=== PATIENT | female | born 1995 | race Caucasian/White ===

== ENCOUNTER 2024-01-29 03:47 | Outpatient (CLI) | payer BC, SELFPAY ==
[2024-01-29 16:54] LABS: Panorama Kit Sent via Fed Ex
[2024-01-29 17:04] LABS: Abs Immature Grans 0.04 10^3/uL (0.0-0.06); Absolute Basophil Count 0.03 10^3/uL (0.0-0.2); Absolute Eosinophil Count 0.06 10^3/uL (0.0-0.7); Absolute Lymphocyte Count 2.09 10^3/uL (1.2-3.4); Absolute Monocyte Count 0.54 10^3/uL (0.1-0.8); Absolute Neutrophil Count 7.55 10^3/uL (1.2-6.7); Basophils % 0.3 %; Eosinophils % 0.6 %; HCT 36.8 % (36.0-46.0); HGB 12.6 g/dL (11.2-15.7); Immature Grans % 0.4 %; Lymphocytes % 20.3 %; MCH 29.2 pg (27.0-33.0); MCHC 34.2 % (32.0-36.0); MCV 85 fL (80-95); MPV 9.8 fL (8.0-11.0); Monocytes % 5.2 %; Neutrophils % 73.2 %; Platelet Count 227 10^3/uL (130-400); RBC 4.32 10^6/uL (3.93-5.22); RDW 12.4 % (11.7-14.6); RDW-SD 38.6 fL; WBC 10.31 10^3/uL (4.4-10.8)
[2024-01-30 23:48] LABS: Hepatitis B Surface Ag Negative (Negative)
[2024-01-31 00:11] LABS: HIV-1/2 Ag & Ab Screen Negative (Negative)
[2024-01-31 00:19] LABS: Hepatitis C Ab w Rflx HCV PCR Negative (Negative)
[2024-01-31 10:15] LABS: Varicella IgG Antibody Negative (See Note)
[2024-01-31 10:23] LABS: Rubella IgG Ab (UVM) Negative (See Note)
[2024-02-01 15:43] LABS: Syphilis IgG w/Reflex Nonreactive (Nonreactive)
[2024-02-04 15:51] LABS: Specimen WB Whole Blood
[2024-02-11 16:04] LABS: Result Summary NEGATIVE; Specimen WB Whole Blood
== END 2024-01-29 03:48 | disposition home or self-care (01) ==
LOC: LBO 03:47
PROVIDERS: Visit Provider Advanced Practice Midwife
DX: Z34.91 Encounter for supervision of normal pregnancy, unspecified, first trimester (principal)
CPT/HCPCS: 36415; 81220; 81222; 81329; 86787; 86803; 86850; 86900; 86901; 87340; 87389; 85025; 86762; 86780

== ENCOUNTER 2024-01-29 16:24 | Outpatient (REF) | payer BC, SELFPAY ==
[2024-01-31 14:01] LABS: Chlamydia Result Negative (Negative); GC Result Negative (Negative)
== END 2024-01-29 16:25 | disposition home or self-care (01) ==
LOC: LBN 16:24
PROVIDERS: Visit Provider Advanced Practice Midwife
DX: Z34.91 Encounter for supervision of normal pregnancy, unspecified, first trimester (principal); Z3A.11 11 weeks gestation of pregnancy; Z11.3 Encounter for screening for infections with a predominantly sexual mode of transmission
CPT/HCPCS: 87491; 87591; 87086

== ENCOUNTER 2024-05-26 03:29 | Outpatient (CLI) | payer BC, SELFPAY ==
[2024-05-26 11:27] LABS: HCT 37.1 % (36.0-46.0); HGB 12.8 g/dL (11.2-15.7); MCH 30.1 pg (27.0-33.0); MCHC 34.5 % (32.0-36.0); MCV 87 fL (80-95); MPV 9.8 fL (8.0-11.0); Platelet Count 203 10^3/uL (130-400); RBC 4.25 10^6/uL (3.93-5.22); RDW 12.6 % (11.7-14.6); RDW-SD 40.2 fL; WBC 11.17 10^3/uL (4.4-10.8)
[2024-05-26 11:37] LABS: Glucose,1 Hr (Glucola) 101 mg/dL (80-140)
== END 2024-05-26 03:30 | disposition home or self-care (01) ==
LOC: LBO 03:29
PROVIDERS: Visit Provider Advanced Practice Midwife
DX: Z34.92 Encounter for supervision of normal pregnancy, unspecified, second trimester (principal); O26.892 Other specified pregnancy related conditions, second trimester; Z67.91 Unspecified blood type, Rh negative
CPT/HCPCS: 36415; 82950; 85027; 86850; 86900; 86901; 90384

== ENCOUNTER 2024-07-10 16:08 | Outpatient (CLI) | payer BC, SELFPAY ==
[2024-07-10 16:17] VITALS: BP 139/87; PULSE 58; TEMP 36.5
[2024-07-10 16:30] VITALS: BP 139/87; PULSE 58
--- NOTE | 2024-07-10 16:36 | W.OBNST ---
Date of service: 07/10/24 Time of Service: 16:36 NST Evaluation Reason for NST Reasons for Nonstress Test: GESTATIONAL HYPERTENSION Reason for NST Other: rule out preeclampsia/gHTN Gestational Age Gestational Age in Weeks and Days: 35 Weeks and 0Days Test and Monitor Explained Test/Monitor Explained: Test Explained and Monitor Explained Vital Signs Blood Pressure: 139/87 Pulse: 58 Temperature: 97.7 F Urine Results Urine Protein: Negative Urine Ketones: Negative Urine Glucose: Negative Urine Blood: Negative NST Information Time on Monitor: 16:15 NST Interventions: PO Hydration Contraction Frequency: q2-4 Comments: uterine irritability NST Evaluation Patient States Movement: Present FHR Baseline: 130 Variability: Moderate 6-25 bpm Accelerations: 15x15 Decelerations: None NST Results: Reactive Note Ultrasound Done: N/A. NST Note Note: S: Patient presents for rule out gestational hypertension vs preeclampsia after reporting an increase in pedal edema and a persistent headache throughout the day. Has not treated headache yet. No prior history of BP elevation. BP in clinic 130s/80s O: 139/87, repeat 136/86 Chest: RRR, CTAB Abd: gravid, normal movement LE: mild pedal edema, normal reflexes P: Tylenol 650mg administered for headache, Preeclamptic panel pending. Discussed possible POC depending on lab results, patient nervous and teary but understanding. FU with patient pending lab results. NST Reviewed and Verified by: Lennie Dutton Exam Const General: cooperative, healthy appearing and no acute distress Resp Auscultation: clear to auscultation bilaterally Cardio Rate: regular rate Rhythm: regular rhythm Neuro General: patient oriented x3 Cognition: normal cognition DTR's: Rt Patellar: 2+ and Lt Patellar: 2+ Extrem Right lower extremity: edema Details: non-pitting Left lower extremity: edema Details: non-pitting
[2024-07-10 16:38] VITALS: BP 139/87; PULSE 58; TEMP 36.5
[2024-07-10] MEDS: Acetaminophen 325 MG TAB 650 MG PO (16:43)
[2024-07-10 16:47] VITALS: BP 136/86; PULSE 57
[2024-07-10 16:55] VITALS: BP 139/87; PULSE 58; TEMP 36.5
[2024-07-10 17:03] LABS: HCT 39.3 % (36.0-46.0); HGB 13.1 g/dL (11.2-15.7); MCH 29.6 pg (27.0-33.0); MCHC 33.3 % (32.0-36.0); MCV 89 fL (80-95); MPV 11.2 fL (8.0-11.0); Platelet Count 188 10^3/uL (130-400); RBC 4.43 10^6/uL (3.93-5.22); RDW 12.7 % (11.7-14.6); RDW-SD 41.1 fL; WBC 10.49 10^3/uL (4.4-10.8)
[2024-07-10 17:11] LABS: CREATININE 0.7 mg/dL (0.55-1.02); Estimated GFR 122.25 (mL/min/1.73m2)
[2024-07-10 17:15] LABS: ALT 533 U/L (14-59); AST 244 U/L (15-37)
[2024-07-10 17:31] LABS: COMMENT (LAB VIEW ONLY) 53.02 mg/dL; PROTEIN < 6.0 mg/dL
[2024-07-10 18:09] LABS: Albumin 2.5 g/dL (3.4-5.0); Alkaline Phosphatase 143 U/L (46-116); Anion Gap 7.8 mmol/L (3-11); BUN 9 mg/dL (7-18); Bilirubin, Total 0.58 mg/dL (0.2-1.0); CO2 24.2 mmol/L (21.0-32.0); CREATININE 0.7 mg/dL (0.55-1.02); Chloride 106 mmol/L (98-107); Estimated GFR 122.25 (mL/min/1.73m2); Glucose 79 mg/dL (74-106); Potassium 3.6 mmol/L (3.5-5.1); Sodium 138 mmol/L (136-145); Total Protein 6.8 g/dL (6.4-8.2)
== END 2024-07-10 17:00 ==
LOC: BCD 16:11 → OBS 16:14
PROVIDERS: Visit Provider Advanced Practice Midwife
DX: R51.9 Headache, unspecified; O12.03 Gestational edema, third trimester; Z3A.35 35 weeks gestation of pregnancy
CPT/HCPCS: 59025; 80053; 85027; 82565; 84156; 84450; 84460

== ENCOUNTER 2024-07-13 08:28 | Outpatient (CLI) | payer BC, SELFPAY ==
[2024-07-13 15:00] VITALS: BP 135/88; PULSE 72
[2024-07-13 15:19] LABS: HCT 37.8 % (36.0-46.0); HGB 12.9 g/dL (11.2-15.7); MCH 29.8 pg (27.0-33.0); MCHC 34.1 % (32.0-36.0); MCV 87 fL (80-95); MPV 11.6 fL (8.0-11.0); Platelet Count 178 10^3/uL (130-400); RBC 4.33 10^6/uL (3.93-5.22); RDW 12.3 % (11.7-14.6); RDW-SD 39.7 fL; WBC 11.52 10^3/uL (4.4-10.8)
[2024-07-13 15:38] LABS: Amylase 53 U/L (25-115); LDH 180 U/L (81-234); Lipase 25 U/L (<78); Uric Acid 4.1 mg/dL (2.6-6.0)
[2024-07-13 15:40] LABS: ALT 326 U/L (14-59); AST 132 U/L (15-37); Albumin 2.3 g/dL (3.4-5.0); Alkaline Phosphatase 150 U/L (46-116); Anion Gap 11.5 mmol/L (3-11); BUN 8 mg/dL (7-18); Bilirubin, Total 0.49 mg/dL (0.2-1.0); CO2 21.5 mmol/L (21.0-32.0); CREATININE 0.6 mg/dL (0.55-1.02); Calcium 9.2 mg/dL (8.5-10.1); Chloride 107 mmol/L (98-107); Estimated GFR 126.87 (mL/min/1.73m2); Glucose 107 mg/dL (74-106); Potassium 3.8 mmol/L (3.5-5.1); Sodium 140 mmol/L (136-145); Total Protein 6.5 g/dL (6.4-8.2)
[2024-07-13 15:51] VITALS: BP 133/85; PULSE 64
[2024-07-13 15:56] VITALS: BP 133/85; PULSE 64; TEMP 36.6
[2024-07-13 16:39] LABS: PROTEIN < 6.0 mg/dL
--- NOTE | 2024-07-13 17:27 | OBCE_ITS ---
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 She was seen on Saturday with some vague complaints, and mildly elevated blood pressure along with headache. At that time, she had baseline laboratory studies performed which included liver enzymes which were significantly elevated. She Suresh presented today for evaluation and consultation. She is feeling better. She has no further headaches. Her blood pressure remained stable. She had a category 1, reactive nonstress test with contractions every 4 to 6 minutes. These are mildly palpable. Baby's been moving and active. In conjunction with Lennie Dutton CNM, we had a conversation regarding the etiology of elevated liver enzymes which could include but is not limited to preeclampsia, acute fatty liver of , viral exposure, pancreatitis, gallstone and gallbladder related issues. She had repeat laboratory studies with a slight decrease in her liver enzymes and otherwise stable. Urine protein creatinine ratio failed to detect any urine protein. Will check a urinalysis as well. She will have close surveillance with twice-weekly nonstress testing. She will continue to monitor for symptomatology which may include nausea, vomiting, itching, changes in her appetite, bowel or bladder function. She was educated on appropriate monitoring of status. She will be seen back in the office on . Ultrasound was ordered of her gallbladder. PFSH All Active Problems (Updated 07/13/24 @ 17:19 by Alma Mccormack DO) Elevated liver enzymes (Acute) Susceptible to varicella (non-immune), currently (Acute) Rubella non-immune status, antepartum (Acute) Rh negative state in antepartum period (Acute) Anxiety (Chronic) controlled with sertraline (Acute) Medical History (Updated 07/13/24 @ 17:19 by Alma Mccormack DO) Amenorrhea Social History Smoking risk assessment performed?: No History History 2 1 Para 0 Hx # Term Pregnancies 0 Multiple births 0 Hx # Pregnancies 0 Ectopic pregnancies 0 AB induced 0 Hx Number of Living Children 0 AB spontaneous 0 Results Last Vital Signs Pulse 64 07/13/24 15:51 BP 133/85 07/13/24 15:51 Labs 07/13/24 15:11 07/13/24 15:11 Labs: Laboratory Results - last 24 hr 07/13/24 07/13/24 15:11 15:45 WBC 11.52 H RBC 4.33 Hgb 12.9 Hct 37.8 MCV 87 MCH 29.8 MCHC 34.1 RDW 12.3 Plt Count 178 MPV 11.6 H Sodium 140 Potassium 3.8 Chloride 107 Carbon Dioxide 21.5 Anion Gap 11.5 H BUN 8 Creatinine 0.6 Est GFR (CKD-EPI 2020) 126.87 Glucose 107 H Uric Acid 4.1 Calcium 9.2 Total Bilirubin 0.49 AST 132 H ALT 326 H Alkaline Phosphatase 150 H Lactate Dehydrogenase 180 Total Protein 6.5 Albumin 2.3 L Amylase 53 Lipase 25 Ur Random Creatinine 14.80 U Random Total Protein < 6.0 U [place] Prot/Creat Ratio
--- NOTE | 2024-07-13 18:11 | W.OBNST ---
Date of service: 07/13/24 Time of Service: 15:00 NST Evaluation Reason for NST Reasons for Nonstress Test: OTHER, SEE COMMENT Reason for NST Other: Elevated liver enzymes Gestational Age Gestational Age in Weeks and Days: 35 Weeks and 3Days Test and Monitor Explained Test/Monitor Explained: Test Explained, Monitor Explained and Patient Verbalized Understanding Vital Signs Blood Pressure: 133/85 Pulse: 64 Temperature: 97.9 F Urine Results Urine Protein: Negative Urine Ketones: Negative Urine Glucose: Negative Urine Blood: Negative NST Information Date on Monitor: 07/13/24 Time on Monitor: 14:59 Date off Monitor: 07/13/24 Time off Monitor: 15:51 Total Time on Monitor: 52 NST Interventions: Notify Provider Contraction Frequency: Q4 NST Evaluation Patient States Movement: Present FHR Baseline: 130 Variability: Moderate 6-25 bpm Accelerations: 15x15 Decelerations: None NST Results: Reactive Note Ultrasound Done: N/A. NST Note Note: Reactive NST as noted. Bedside consult done with this staff writer and Alma Mccormack MD regarding patient's abnormal lab results and pending studies. Pt to FU with biweekly testing on and repeat LFT's. NST Reviewed and Verified by: Lennie Dutton
[2024-07-13 18:13] VITALS: BP 133/85; PULSE 64; TEMP 36.6
[2024-07-13 20:10] LABS: Bilirubin Negative (Negative); Blood Negative (Negative); Clarity Clear (Clear); Glucose Negative (Negative); Ketones Negative (Negative); Leukocyte Esterase Negative (Negative); Nitrite Negative (Negative); Specific Gravity <= 1.005 (1.005-1.025); Urobilinogen 0.2 mg/dL (Up to 0.2); pH 5.5 (5-8)
[2024-07-13 22:44] LABS: Hepatitis A Antibody IgM Negative (Negative); Hepatitis B Core Antibody Negative (Negative); Hepatitis B surface Ag Negative (Negative); Hepatitis C Ab w Rflx HCV PCR Negative (Negative)
[2024-07-16 10:49] LABS: CMV Ab, IgM Negative (Negative); Toxoplasma Ab, IgG Negative (Negative); Toxoplasma Ab, IgM Negative (Negative); Toxoplasma IgG Value <3 IU/mL
[2024-07-16 11:39] LABS: Coag Factor XII Assay 252 % (55 - 180)
[2024-07-17 12:50] LABS: Parvovirus B19 Ab, IgG Positive (Negative); Parvovirus B19 Ab, IgM Negative (Negative)
== END 2024-07-13 17:03 ==
LOC: BCD 08:28 → OBS 14:51
PROVIDERS: Visit Provider Advanced Practice Midwife
DX: R74.01 Elevation of levels of liver transaminase levels (principal); O99.893 Other specified diseases and conditions complicating puerperium; Z3A.35 35 weeks gestation of pregnancy
CPT/HCPCS: 59025; 80053; 83690; 85027; 86704; 86709; 86803; 87340; 81003; 82150; 82565; 83615; 84156; 84550; 85280; 86645; 86747; 86777; 86778

== ENCOUNTER 2024-07-16 08:47 | Outpatient (CLI) | payer BC, SELFPAY ==
--- OUTSIDE RECORDS SUMMARY | 2024-07-16 08:50 | XMS_ITS | Referral Summary ---
Author Organization [facility] Address [address] [place] [address] Care Team Providers Care Icer Machine Name Role Phone Unavailable Primary Care Provider Unavailabl e Encounters Date Type Department Care Team Description 07/13/2024 Lab Requisition [facility] Pathology & Laboratory Medicine - [facility] [address] [place] [address] Outr Resulting Lab, Provider from Last 3 Months Social History Tobacco Use Types Packs/Day Years Used Date Smoking Tobacco: Never Assessed Comments Unknown Sex and Gender Information Value Date Recorded Sex Assigned at Not on file Legal Sex Female 15:47 EDT Gender Identity Not on file Sexual Orientation Not on file Plan of Treatment Not on file Procedures Procedure Name Priority Date/Time Associated Diagnosis Comments ACUTE HEPATITIS PROFILE Routine 07/13/2024 15:11 EST HEPATITIS C AB W REFLEX TO HCV RNA BY PCR Routine 01/29/2024 16:45 EDT from Last 3 Months or Most Recently Relevant to Health Maintenance Results * ACUTE HEPATITIS PROFILE (07/13/2024 15:11 EST) Hep B Surface Ag Negative Negative 07/13/2024 22:39 EST [facility] Hep C Antibody Negative Negative 07/13/2024 22:39 EST [facility] Hepatitis A Antibody, IgM Negative Negative 07/13/2024 22:39 EST [facility] Comment:The results of this assay can be falsely lowered due to the consumption of Biotin. Hepatitis B Core Ab, Total Negative Negative 07/13/2024 22:39 [facility] Blood VENOUS BLOOD / Unknown 07/13/2024 15:11 EST 07/13/2024 21:15 EST us Provider Outr Resulting Lab CHEMISTRY & BLOOD GA S ORDERABLES Final Result Performing Organization Address City/[facility]/ZIP Co de Phone Number [facility] [address] [place] [address] * HEPATITIS C AB W REFLEX TO HCV RNA BY PCR (01/29/2024 16:45 EDT) Hep C Antibody Negative Negative 01/31/2024 0:14 EDT [facility] Blood VENOUS BLOOD / Unknown 01/29/2024 16:45 EDT 01/30/2024 21:53 EDT us Provider Outr Resulting Lab CHEMISTRY & BLOOD GA S ORDERABLES Final Result Performing Organization Address City/[facility]/ZIP Co de Phone Number [facility] [address] [place] [address] from Last 3 Months or Most Recently Relevant to Health Maintenance
--- OUTSIDE RECORDS SUMMARY | 2024-07-16 08:50 | XMS_ITS | Encounter Summary ---
Author Organization [facility] Address [address] [place] [address] Care Team Providers Care Car Builder Name Role Phone Unavailable Primary Care Provider Unavailabl e Encounter Details Date Type Department Care Team (Late st Contact Info) Description 01/30/2024 Lab Requisition [facility] Pathology & Laboratory Medicine - [address] [phone] Outr Resulting Lab, Provider Social History Tobacco Use Types Packs/Day Years Used Date Smoking Tobacco: Never Assessed Comments Unknown Sex and Gender Information Value Date Recorded Sex Assigned at Not on file Legal Sex Female 15:47 EDT Gender Identity Not on file Sexual Orientation Not on file documented as of this encounter Plan of Treatment Not on file documented as of this encounter Procedures Procedure Name Priority Date/Time Associated Diagnosis Comments HEPATITIS C AB W REFLEX TO HCV RNA BY PCR Routine 01/29/2024 16:45 EDT HEPATITIS B SURFACE ANTIGEN Routine 01/29/2024 16:45 EDT documented in this encounter Results * HEPATITIS B SURFACE ANTIGEN (01/29/2024 16:45 EDT) Hep B Surface Ag Negative Negative 01/30/2024 23:[address] [facility] Blood VENOUS BLOOD / Unknown 01/29/2024 16:45 EDT 01/30/2024 21:53 EDT us Provider Outr Resulting Lab CHEMISTRY & BLOOD GA S ORDERABLES Final Result [facility] [address] [place] [address] * HEPATITIS C AB W REFLEX TO HCV RNA BY PCR (01/29/2024 16:45 EDT) Hep C Antibody Negative Negative 01/31/2024 0:[address] [facility] Blood VENOUS BLOOD / Unknown 01/29/2024 16:45 EDT 01/30/2024 21:53 EDT us Provider Outr Resulting Lab CHEMISTRY & BLOOD GA S ORDERABLES Final Result [facility] [address] [place], [place] [id number] documented in this encounter Visit Diagnoses Not on filedocumented in this encounter
--- OUTSIDE RECORDS SUMMARY | 2024-07-16 08:50 | XMS_ITS | Encounter Summary ---
Author Organization [facility] Address [address] [place] [address] Care Team Providers Care [employer] Name Role Phone Unavailable Primary Care Provider Unavailabl e Encounter Details Date Type Department Care Team (Late st Contact Info) Description 01/30/[address] [facility] Pathology & Laboratory Medicine - [address] [address] Outr Resulting Lab, Provider Social History Tobacco [...] Procedure Name Priority Date/Time Associated Diagnosis Comments CHLAMYDIA/N. GONORRHOEAE AMPLIFIED NUCLEIC ACID Routine 01/29/2024 15:50 EDT documented in this encounter Results * CHLAMYDIA/N. GONORRHOEAE AMPLIFIED NUCLEIC ACID (01/29/2024 15:50 EDT) Neisseria gonorrhoeae Result Negative Negative 01/31/2024 13:52 EDT [facility] Chlamydia trachomatis Result Negative Negative 01/31/2024 13:52 EDT [facility] Swab VAGINAL STRUCTURE / Unknown 01/29/2024 15:50 EDT 01/30/2024 22:11 EDT us Provider Outr Resulting Lab MICROBIOLOGY - GENER AL ORDERABLES Final Result [facility] [address] [place] [address] documented in this encounter Visit Diagnoses Not on filedocumented in this encounter
--- OUTSIDE RECORDS SUMMARY | 2024-07-16 08:50 | XMS_ITS | Encounter Summary ---
Author Organization [facility] Address [address] [place] [address] Care Team Providers Care Medical Biller Coder Name Role Phone Unavailable Primary Care Provider Unavailabl e Encounter Details Date Type Department Care Team (Late st Contact Info) Description 07/13/2024 Lab Requisition [facility] Pathology & Laboratory Medicine - [address] [address] Outr Resulting Lab, Provider Social History Tobacco [...] ACUTE HEPATITIS PROFILE Routine 07/13/2024 15:11 EST documented in this encounter Results * ACUTE HEPATITIS PROFILE (07/13/2024 15:11 EST) Hep B Surface Ag Negative Negative 07/13/2024 22:39 EST [facility] Hep C Antibody Negative Negative 07/13/2024 22:39 EST [facility] Hepatitis A Antibody, IgM Negative Negative 07/13/2024 22:39 EST [facility] Comment:The results of this assay can be falsely lowered due to the consumption of Biotin. Hepatitis B Core Ab, Total Negative Negative 07/13/2024 22:39 EST [facility] Blood VENOUS BLOOD / Unknown 07/13/2024 15:11 EST 07/13/2024 21:15 EST us Provider Outr Resulting Lab CHEMISTRY & BLOOD GA S ORDERABLES Final Result [facility] [address] [place] [address] documented in this encounter Visit Diagnoses Not on filedocumented in this encounter
--- OUTSIDE RECORDS SUMMARY | 2024-07-16 08:50 | XMS_ITS | Encounter Summary ---
Author Organization [facility] Address [address] [place] [address] Care Team Providers Care Ostrich Farm Worker Name Role Phone Unavailable Primary Care Provider Unavailabl e Encounter Details Date Type Department Care Team (Late st Contact Info) Description 01/30/2024 Lab Requisition [facility] Pathology & Laboratory Medicine - [address] [phone] Outr Resulting Lab, Provider Social History Tobacco [...] Procedure Name Priority Date/Time Associated Diagnosis Comments HIV 1/2 ANTIGEN AND ANTIBODY, 4TH GENERATION Routine 01/29/2024 16:45 EDT documented in this encounter Results * HIV 1/2 ANTIGEN AND ANTIBODY, 4TH GENERATION (01/29/2024 16:45 EDT) HIV 1 and 2 Antibody/p24 Antigen, 4th Generation Negative Negative 01/31/2024 0:07 EDT [facility] Comment:If acute HIV-1 infec tion is suspected in a high risk patient, submit plasma specimen for HIV-1 RNA quantitation test. Blood VENOUS BLOOD / Unknown 01/29/2024 16:45 EDT 01/30/2024 22:04 EDT Narrative [facility] - 01/31/2024 0:07 EDT Fourth Generation assay performed on the [employer] XPT. us Provider Outr Resulting Lab IMMUNOLOGY AND SEROL OGY ORDERABLES Final Result [facility] [address] [place] [address] documented in this encounter Visit Diagnoses Not on filedocumented in this encounter
--- OUTSIDE RECORDS SUMMARY | 2024-07-16 08:50 | XMS_ITS | Clinical Summary ---
Author Organization [facility] Address [address] [place] [address] Care Team Providers Care Tests Superintendent Name Role Phone Unavailable Primary Care Provider Unavailabl e Encounters Date Type Department Care Team Description 07/13/2024 Lab Requisition [facility] Pathology & Laboratory Medicine - [address] [address] Outr Resulting Lab, Provider from Last 3 Months Social History Tobacco Use Types Packs/Day Years Used Date Smoking Tobacco: Never Assessed Comments Unknown Sex and Gender Information Value Date Recorded Sex Assigned at Not on file Legal Sex Female 15:47 EDT Gender Identity Not on file Sexual Orientation Not on file Plan of Treatment Health Maintenance Due Date Last Done Comments Hepatitis B Vaccine (1 of 3 - 19+ 3-dose series) 11/14 COVID-19 Vaccine (2023- season) 2024 Hepatitis C Screen Completed 01/29/2024 Procedures Procedure Name Priority Date/Time Associated Diagnosis Comments ACUTE HEPATITIS PROFILE Routine 07/13/2024 15:11 EST HEPATITIS C AB W REFLEX TO HCV RNA BY PCR Routine 01/29/2024 16:45 EDT from Last 3 Months or Most Recently Relevant to Health Maintenance Results * ACUTE HEPATITIS PROFILE (07/13/2024 15:11 EST) Hep B Surface Ag Negative Negative 07/13/2024 22:39 EST [facility] Hep C Antibody Negative Negative 07/13/2024 22:39 EST [facility] Hepatitis A Antibody, IgM Negative Negative 07/13/2024 22:39 EST [facility] Comment:The results of this assay can be falsely lowered due to the consumption of Biotin. Hepatitis B Core Ab, Total Negative Negative 07/13/2024 22:39 EST [facility] Blood VENOUS BLOOD / Unknown 07/13/2024 15:11 EST 07/13/2024 21:15 EST us Provider Outr Resulting Lab CHEMISTRY & BLOOD GA S ORDERABLES Final Result Performing Organization Address City/[facility]/ZIP Co de Phone Number [facility] [address] [place] [address] * HEPATITIS C AB W REFLEX TO HCV RNA BY PCR (01/29/2024 16:45 EDT) Hep C Antibody Negative Negative 01/31/2024 0:14 EDT [facility] Blood VENOUS BLOOD / Unknown 01/29/2024 16:45 EDT 01/30/2024 21:53 EDT us Provider Outr Resulting Lab CHEMISTRY & BLOOD GA S ORDERABLES Final Result [facility] [address] [place] [address] from Last 3 Months or Most Recently Relevant to Health Maintenance
--- OUTSIDE RECORDS SUMMARY | 2024-07-16 08:50 | XMS_ITS | Encounter Summary ---
Author Organization [facility] Address [address] [place] [address] Care Team Providers Care Professional Engineer Name Role Phone Unavailable Primary Care Provider Unavailabl e Encounter Details Date Type Department Care Team (Late st Contact Info) Description 08/22/2021 Lab Requisition [facility] Pathology & Laboratory Medicine - [address] [address] Outr Resulting Lab, Provider Social History Tobacco [...] Procedure Name Priority Date/Time Associated Diagnosis Comments ZZCOVID-19 TEST [facility] PCR Today 08/22/2021 13:30 EDT COVID-19 TESTING Routine 08/22/2021 13:3 0 EDT documented in this encounter Results * [facility] (08/22/2021 13:30 EDT) Swab 08/22/2021 13:3 0 EDT 08/22/2021 21:09 EDT us Provider Outr Resulting Lab MICROBIOLOGY - GENER AL ORDERABLES Final Result [facility] [address] [place] [address] * COVID-19 TESTING (08/22/2021 13:30 EDT) COVID-19 rt-PCR Result Negative Negative 08/23/2021 13:25 EDT [facility] Comment: This test has not been FDA cleared or approved. This test has been authorized by FDA under an EUA for use by authorized laboratories. This test has been authorized only for detection of nucleic acid from 2019-nCoV, not for any other viruses or pathogens. This test is only authorized for the duration of the declaration that circumstances exist justifying the authorization of emergency use of in vitro diagnostic tests for detection and/or diagnosis of 2019-nCoV under section 564(b)(1) of Act, 21 U.S.C ?? 360bbb-3(b) (1), unless the authorization is terminated or revoked sooner. Negative results do not preclude 2019-nCoV infection and should not be used as the sole basis for treatment or other patient management decisions. Negative results must be combined with clinical observations, patient history, and epidemiological information. Testing was performed using the jeimy SARS-CoV-2 assay ([employer] on the Jeimy 6800 System Performing Lab Jeimy 6800 [facility] 08/23/2021 13:25 EDT [facility] Swab 08/22/2021 13:3 0 EDT 08/22/2021 21:09 EDT us Provider Outr Resulting Lab MICROBIOLOGY - GENER AL ORDERABLES Final Result [facility] [address] [place] [address] documented in this encounter Visit Diagnoses Not on filedocumented in this encounter
--- OUTSIDE RECORDS SUMMARY | 2024-07-16 08:50 | XMS_ITS | Encounter Summary ---
Author Organization [facility] Address [address] [place] [address] Care Team Providers Care Reflesher Name Role Phone Unavailable Primary Care Provider Unavailabl e Encounter Details Date Type Department Care Team (Late st Contact Info) Description 01/30/2024 Lab Requisition [facility] Pathology & Laboratory Medicine - [address] [address] Outr Resulting Lab, Provider Social History Tobacco [...] Procedure Name Priority Date/Time Associated Diagnosis Comments RUBELLA IGG ANTIBODY Routine 01/29/2024 16:45 EDT VARICELLA IGG ANTIBODY Routine 01/29/2024 16:45 EDT documented in this encounter Results * VARICELLA IGG ANTIBODY (01/29/2024 16:45 EDT) Varicella IgG Ab Negative See Note 01/31/2024 10:11 EDT [facility] Comment:Absence of detectabl e Varicella Zoster virus IgG antibodies. A negative result generally indicates no detectable antibody, but does not rule out acute infection. If VZV exposure is suspected, a second sample should be collected and tested no less than one or two weeks later. Blood VENOUS BLOOD / Unknown 01/29/2024 16:45 EDT 01/30/2024 21:53 EDT us Provider Outr Resulting Lab IMMUNOLOGY AND SEROL OGY ORDERABLES Final Result Performing Organization Address [facility] Co de Phone Number [facility] [address] [place] [address] * RUBELLA IGG ANTIBODY (01/29/2024 16:45 EDT) Rubella IgG Ab Negative See Note 01/31/2024 10:18 EDT [facility] Comment:Sample is considered negative for IgG antibodies to Rubella virus. A negative result presumes that immunity has not been acquired. If exposure to Rubella virus is suspected despite a negative finding, a second specimen should be collected and tested for Rubella IgG Ab one or two weeks later. Blood VENOUS BLOOD / Unknown 01/29/2024 16:45 EDT 01/30/2024 21:53 EDT us Provider Outr Resulting Lab CHEMISTRY & BLOOD GA S ORDERABLES Final Result Performing Organization Address City/[facility]/ZIP Co de Phone Number [facility] [address] [place], [place] [phone] documented in this encounter Visit Diagnoses Not on filedocumented in this encounter
[2024-07-16 15:42] VITALS: BP 131/78; PULSE 57; TEMP 36.5
[2024-07-16 15:47] VITALS: BP 131/78; PULSE 57
--- NOTE | 2024-07-16 17:01 | W.OBNST ---
Date of service: 07/16/24 Time of Service: 17:01 NST Evaluation Reason for NST Reasons for Nonstress Test: OTHER, SEE COMMENT Reason for NST Other: Liver functions Gestational Age Gestational Age in Weeks and Days: 35 Weeks and 6Days Test and Monitor Explained Test/Monitor Explained: Test Explained and Monitor Explained Vital Signs Blood Pressure: 131/78 Pulse: 57 Temperature: 97.7 F Urine Results Urine Protein: Negative Urine Ketones: Positive Urine Glucose: Negative Urine Blood: Negative NST Information Time on Monitor: 15:46 NST Interventions: PO Hydration NST Evaluation Patient States Movement: Present FHR Baseline: 135 Variability: Moderate 6-25 bpm Accelerations: 15x15 Decelerations: None Note Ultrasound Done: N/A. NST Note Note: See note NST Reviewed and Verified by: Viola Oconnell
[2024-07-16 17:02] VITALS: BP 131/78; PULSE 57; TEMP 36.5
--- NOTE | 2024-07-16 17:02 | W.PM.OBHPL1 ---
Date of service: 07/16/24 Time of Service: 17:04 Assessment and Plan Assessment and plan (1) : Status: Acute (2) Elevated liver enzymes: Status: Acute Assessment and plan: P0 @35.6wks today with significantly elevated liver enzymes of unknown reason. Currently no elevated BPs c/w PEC/HELLP syndrome. Consult with BENJIE Godoy at [facility] [place] with the following recommendations 1. Repeat LFTs, check BPs every few days. Pt will return in 2 days to the Center 2. Growth sono (will be ordered for Saturday) 3. IF she develops any sxms or elevated BPs, then delivery for atypical PEC 4. Delivery at 37wks if no changes prior to that. Reviewed with pt and encouraged her to call with any symptoms or concerns at all. OB-HPI Labor/Delivery History of Present Illness Reason for Visit: N/A Chief Complaint: Other (elevated LFTs). TRACI Calculator Estimated Delivery Date Method Current WG Current Estimate 08/14/24 LMP (Certain) 35w 6d Other Estimates 08/14/24 Ultrasound #1 35w 6d History of Present Expected Delivery Route/Plan - CNM FOB/fibritt - Tito Gonzales (first child) BG Rubella and Varicella non-immune, offer vaccines Wants to avoid epidural, interested in nitrous. Studying hypnobirthing on her own. Specific Issues/Plan 1. cfDNA -low risk, CF/SMA negative, AFP declined 2. Anxiety, takes sertraline 50 mg daily 3. RH Neg- Rhogam @ 28 wks given 05/26, FOB blood type unknown 4. LFT's elevated @ 35 wks, normotensive, Hepatitis Panel negative x4 4a. NST's x2/wk surveillance & BP checks 4b. Hep neg x4, toxo and CMV neg Assessment: History Reviewed & Current Narrative: Pt comes in today for a scheduled NST due to elevated LFTs. They were 244/533 on 07/10, then decreased to 132/326 on 07/13 but increased again today to 279/521. She remains completely asymptomatic. She denies n/v, diarrhea, constipation, abdominal pain (other than occasional BH that have been the same for 2wks), URI sxms, vaginal discharge or bleeding or LOF. She is feeling good movement. She says that over the past 2 days she has been feeling better than she was for the 2wks prior. She felt like her body was just more sore with walking and had more aches and pains. Viral titers have all been normal except parvovirus is still pending. Sono today showed: 1. There is bilateral internal hydronephrosis, right more so than left amount of hydronephrosis on the right side is moderate-severe: Less so on the opposite-left side. 2. 2.4 x 2.2 cm nonshadowing density in the gallbladder which is probably a sludge ball. There are no shadowing gallstones nor gallbladder wall edema nor pericholecystic fluid and the common hepatic duct is not dilated. 3. There is no ascites. Review of Systems Genitourinary Genitourinary: Reports system reviewed and no additional complaints, except as documented PFSH All Active Problems (Updated 07/16/24 @ 17:25 by Viola Oconnell MD) Elevated liver enzymes (Acute) Susceptible to varicella (non-immune), currently (Acute) Rubella non-immune status, antepartum (Acute) Rh negative state in antepartum period (Acute) Anxiety (Chronic) controlled with sertraline (Acute) Social History Smoking risk assessment performed?: No History History 1 Para 0 Hx # Term Pregnancies 0 Multiple births 0 Hx # Pregnancies 0 Ectopic pregnancies 0 AB induced 0 Hx Number of Living Children 0 AB spontaneous 0 Meds Allergies and Home Medications Allergies Allergy/AdvReac Type Severity Reaction Status Date / Time No Known Allergies Allergy Verified 07/10/24 15:50 Home Medications ?Medication ?Instructions ?Recorded ?Confirmed ?Type sertraline 50 mg tablet 50 mg PO DAILY 12/31/23 07/10/24 History vits no.126-ferrous fum 1 tab PO DAILY 01/29/24 07/10/24 History 28 mg iron-folic acid 800 mcg tablet (Classic ) Exam Physical Exam Vital signs: Pulse BP 57 L 131/78 07/16/24 15:47 07/16/24 15:47 Vital Signs Reviewed: Yes Detailed Labor and Delivery Exam Dilation: 1 Effacement (%): 50 station: -3 Cervix position: mid Consistency: soft Marquez Score: Cervical Points Exam 0 1 2 3 Dilation Closed 1-2cm 3-4 cm 5-6cm Effacement 0-30% 40-50% 60-70% 80% Consistency Firm Medium Soft Station -3 -2 -1,0 +1,+2 Position Posterior Mid Anterior Amniotic Membrane Status: Intact Contraction Frequency(min): q1-3 Detailed Abdominal Exam Comments: Gravid abdomen, mild tenderness to palpation across abdomen without any increased tenderness in the RUQ or epigastric area. Detailed Extremities Exam Comments: Trace edema b/l Results Results Group Beta Strep: Done-Result Unknown Risk Assessment Risk for Shoulder Dystocia Historical/Initial OB: NEGATIVE FOR: Pelvic Abnormality, Pre- BMI>30, Previous Shoulder Dystocia or Previous Macrosomia Risk for Pre-Eclampsia Date Initiated/Initials: not indicated, jk Yes, if one or more: NEGATIVE FOR: Hx Pre-E/Gest HTN, Chronic HTN, Multiple Gestation, Pre-gestational DM, Renal Disease, Systemic Lupus or APA Syndrome Yes, if 2 or more: POSITIVE FOR: Nulliparity; NEGATIVE FOR: Age>= 35 yrs, >10yr btwn pregnancies, BMI>30, ethinicty, Mother/Sister w/ Pre-E or Previous IUGR Risk for Post- Hemorrhage Initial: NEGATIVE FOR: Multiple Gestation, Previous PPH, Known Clotting Deficiency, Grand Multiparity or Anticoagulation Risks Reviewed Risks Reviewed Upon Admission: Yes
[2024-07-16 17:25] LABS: COMMENT (LAB VIEW ONLY) 98.25 mg/dL; PROTEIN 12.6 mg/dL; Prot/Crea Ur Ratio 0.12
[2024-07-20 20:40] LABS: Ferritin 75 ng/mL (8-252)
== END 2024-07-16 17:45 ==
LOC: BCD 08:48 → OBS 15:40
PROVIDERS: Advanced Practice Midwife; Visit Provider Advanced Practice Midwife
DX: O26.613 Liver and biliary tract disorders in pregnancy, third trimester (principal); R74.8 Abnormal levels of other serum enzymes; Z3A.35 35 weeks gestation of pregnancy
CPT/HCPCS: 59025; 82565; 82728; 84156; 87081; 87480; 87510; 87660

== ENCOUNTER 2024-07-16 11:16 | Outpatient (CLI) | payer BC, SELFPAY ==
[2024-07-16 14:39] LABS: Abs Immature Grans 0.14 10^3/uL (0.0-0.06); Absolute Basophil Count 0.04 10^3/uL (0.0-0.2); Absolute Eosinophil Count 0.08 10^3/uL (0.0-0.7); Absolute Lymphocyte Count 1.91 10^3/uL (1.2-3.4); Absolute Monocyte Count 0.75 10^3/uL (0.1-0.8); Basophils % 0.3 %; Eosinophils % 0.7 %; HGB 13.7 g/dL (11.2-15.7); Immature Grans % 1.2 %; Lymphocytes % 15.7 %; MCH 29.3 pg (27.0-33.0); MCHC 33.4 % (32.0-36.0); MCV 88 fL (80-95); MPV 11.6 fL (8.0-11.0); Monocytes % 6.2 %; Neutrophils % 75.9 %; Platelet Count 194 10^3/uL (130-400); RBC 4.67 10^6/uL (3.93-5.22); RDW 12.6 % (11.7-14.6); RDW-SD 40.2 fL; WBC 12.14 10^3/uL (4.4-10.8)
[2024-07-16 14:40] LABS: Absolute Neutrophil Count 9.21 10^3/uL (1.2-6.7)
[2024-07-16 14:54] LABS: Mono Screening Negative (Negative)
[2024-07-16 16:09] LABS: ALT 521 U/L (14-59); AST 279 U/L (15-37); Albumin 2.5 g/dL (3.4-5.0); Alkaline Phosphatase 165 U/L (46-116); Anion Gap 9.3 mmol/L (3-11); BUN 10 mg/dL (7-18); Bilirubin, Total 0.86 mg/dL (0.2-1.0); CO2 24.7 mmol/L (21.0-32.0); CREATININE 0.6 mg/dL (0.55-1.02); Calcium 9.6 mg/dL (8.5-10.1); Chloride 106 mmol/L (98-107); Estimated GFR 126.87 (mL/min/1.73m2); Glucose 74 mg/dL (74-106); Potassium 3.8 mmol/L (3.5-5.1); Sodium 140 mmol/L (136-145); Total Protein 6.9 g/dL (6.4-8.2)
== END 2024-07-16 11:17 | disposition home or self-care (01) ==
PROVIDERS: Obstetrics & Gynecology; Visit Provider Obstetrics & Gynecology
DX: R74.8 Abnormal levels of other serum enzymes (principal); Z34.93 Encounter for supervision of normal pregnancy, unspecified, third trimester
CPT/HCPCS: 36415; 80053; 85025; 86308

== ENCOUNTER 2024-07-18 07:47 | Outpatient (CLI) | payer BC, SELFPAY ==
[2024-07-18 10:12] VITALS: BP 128/81; PULSE 67; TEMP 36.8
[2024-07-18 10:29] VITALS: BP 128/81; PULSE 67
[2024-07-18 10:34] LABS: HCT 36.3 % (36.0-46.0); HGB 12.2 g/dL (11.2-15.7); MCH 29.3 pg (27.0-33.0); MCHC 33.6 % (32.0-36.0); MCV 87 fL (80-95); MPV 11.7 fL (8.0-11.0); Platelet Count 182 10^3/uL (130-400); RBC 4.17 10^6/uL (3.93-5.22); RDW 12.6 % (11.7-14.6); RDW-SD 39.8 fL; WBC 10.48 10^3/uL (4.4-10.8)
[2024-07-18 10:47] LABS: ALT 445 U/L (14-59); AST 201 U/L (15-37); Albumin 2.1 g/dL (3.4-5.0); Alkaline Phosphatase 164 U/L (46-116); Anion Gap 8.7 mmol/L (3-11); BUN 8 mg/dL (7-18); Bilirubin, Total 0.79 mg/dL (0.2-1.0); CO2 23.3 mmol/L (21.0-32.0); CREATININE 0.7 mg/dL (0.55-1.02); Calcium 8.7 mg/dL (8.5-10.1); Chloride 107 mmol/L (98-107); Estimated GFR 122.25 (mL/min/1.73m2); Glucose 118 mg/dL (74-106); Potassium 3.5 mmol/L (3.5-5.1); Sodium 139 mmol/L (136-145); Total Protein 6.1 g/dL (6.4-8.2)
--- NOTE | 2024-07-19 23:34 | W.OBNST ---
Date of service: 07/18/24 Time of Service: 12:00 NST Evaluation Reason for NST Reasons for Nonstress Test: GESTATIONAL HYPERTENSION Reason for NST Other: Elevated liver enzymes Gestational Age Gestational Age in Weeks and Days: 36 Weeks and 1Days Test and Monitor Explained Test/Monitor Explained: Test Explained, Monitor Explained and Patient Verbalized Understanding Vital Signs Blood Pressure: 128/81 Pulse: 67 Temperature: 98.2 F NST Information Date on Monitor: 07/18/24 Time on Monitor: 10:10 Date off Monitor: 07/18/24 Time off Monitor: 10:45 Total Time on Monitor: 35 NST Interventions: PO Hydration NST Evaluation Patient States Movement: Present FHR Baseline: 135 Variability: Moderate 6-25 bpm Accelerations: 15x15 Decelerations: None NST Results: Reactive Note Ultrasound Done: N/A. NST Note Note: Patient presents for testing. No complaints of headache vision changes abdominal pain. 07/16/2024 labs: AST 279 ALT 521, 07/18/2024 AST 201, ALT 445. Patient will follow-up in the office in approximately 2 days. She was given instructions regarding signs and symptoms of preeclampsia NST Reviewed and Verified by: Susanna Partida
[2024-07-19 23:35] VITALS: BP 128/81; PULSE 67; TEMP 36.8
== END 2024-07-18 10:50 | disposition other institution (70) ==
LOC: BCD 07:48 → OBS 10:10
PROVIDERS: Visit Provider Obstetrics & Gynecology Gynecology
DX: O13.3 Gestational [pregnancy-induced] hypertension without significant proteinuria, third trimester (principal); O26.613 Liver and biliary tract disorders in pregnancy, third trimester; R74.8 Abnormal levels of other serum enzymes; Z3A.36 36 weeks gestation of pregnancy
CPT/HCPCS: 59025; 36415; 80053; 85027

== ENCOUNTER 2024-07-20 01:04 | Outpatient (CLI) | payer BC, SELFPAY ==
--- NOTE | 2024-07-20 07:00 | DI.US_ITS ---
Exam(s) US OB TACHO WEIGHT EXAM: US OB TACHO WEIGHT CLINICAL HISTORY: growth,elevated liver enzymes,R74.8. TECHNIQUE: Transabdominal obstetrical ultrasound performed. COMPARISON: US US OB 2-3 TRIMESTER from 03/25/2024 US US ABDOMEN from 07/16/2024 FINDINGS: Number of fetuses: 1 position: CEPHALIC Placental location: There is a grade 2 anterior placenta. No evidence of previa. BIOMETRIC DATA: BPD: 8.95cm, 36weeks 2days HC: 33.12cm, 37weeks 5days AC: 34.33cm, 38weeks 2days FL: 7.08cm, 36weeks 2days EFW: 3,223.35g, 7lb 2.4oz, 80.5% Composite Age: 37weeks 1day TRACI: 08/09/2024 Heart Rate: 136bpm Amniotic fluid index: 24.49cm. The largest pocket measures 8.0 cm. IMPRESSION: 1. Single live intrauterine gestation as above. 2. Estimated weight is 3223gms. This is the 81st percentile. 3. Amniotic fluid index is 24.5 cm. The largest pocket measures 8.0 cm. DATA REPOSITORY:
== END 2024-07-20 01:24 ==
LOC: DI 01:04
PROVIDERS: Advanced Practice Midwife; Visit Provider Obstetrics & Gynecology
DX: R74.8 Abnormal levels of other serum enzymes (principal)
CPT/HCPCS: 76816; 85384; 85610; 85730

== ENCOUNTER 2024-07-20 08:36 | Outpatient (CLI) | payer BC, SELFPAY ==
[2024-07-20] VITALS (12 sets, daily range): BP systolic 131–153; BP diastolic 81–95; PULSE 57–81; TEMP 36.7; O2SAT 98
[2024-07-20 11:31] LABS: HCT 36.5 % (36.0-46.0); HGB 12.3 g/dL (11.2-15.7); MCH 29.4 pg (27.0-33.0); MCHC 33.7 % (32.0-36.0); MCV 87 fL (80-95); MPV 11.8 fL (8.0-11.0); Platelet Count 189 10^3/uL (130-400); RBC 4.18 10^6/uL (3.93-5.22); RDW 12.4 % (11.7-14.6); RDW-SD 39.8 fL; WBC 10.72 10^3/uL (4.4-10.8)
[2024-07-20 11:42] LABS: ALT 413 U/L (14-59); AST 195 U/L (15-37); Albumin 2.2 g/dL (3.4-5.0); Alkaline Phosphatase 169 U/L (46-116); Anion Gap 8.6 mmol/L (3-11); BUN 11 mg/dL (7-18); Bilirubin, Total 0.55 mg/dL (0.2-1.0); CO2 21.4 mmol/L (21.0-32.0); CREATININE 0.6 mg/dL (0.55-1.02); Calcium 8.9 mg/dL (8.5-10.1); Chloride 108 mmol/L (98-107); Estimated GFR 126.87 (mL/min/1.73m2); Glucose 76 mg/dL (74-106); Potassium 3.6 mmol/L (3.5-5.1); Sodium 138 mmol/L (136-145); Total Protein 6.4 g/dL (6.4-8.2); Uric Acid 5.4 mg/dL (2.6-6.0)
[2024-07-20 11:43] LABS: COMMENT (LAB VIEW ONLY) 15.67 mg/dL
[2024-07-20 11:45] LABS: PROTEIN < 6.0 mg/dL
--- NOTE | 2024-07-20 17:11 | W.OBNST ---
Date of service: 07/20/24 Time of Service: 11:00 NST Evaluation Reason for NST Reasons for Nonstress Test: OTHER, SEE COMMENT Reason for NST Other: high liver enzymes Gestational Age Gestational Age in Weeks and Days: 36 Weeks and 3Days Test and Monitor Explained Test/Monitor Explained: Test Explained, Monitor Explained and Patient Verbalized Understanding Vital Signs Blood Pressure: 146/95 Pulse: 60 Temperature: 98.1 F Urine Results Urine Protein: Negative Urine Ketones: Negative Urine Glucose: Negative Urine Blood: Negative NST Information Date on Monitor: 07/20/24 Time on Monitor: 10:35 Date off Monitor: 07/20/24 NST Interventions: PO Hydration NST Evaluation Patient States Movement: Present FHR Baseline: 135 Variability: Moderate 6-25 bpm Accelerations: 15x15 Decelerations: None NST Results: Reactive Note Ultrasound Done: N/A. NST Note NST Reviewed and Verified by: Viola Oconnell
== END 2024-07-20 14:42 ==
LOC: BCD 08:37 → OBS 10:34
PROVIDERS: Visit Provider Obstetrics & Gynecology
DX: O26.613 Liver and biliary tract disorders in pregnancy, third trimester (principal); R74.8 Abnormal levels of other serum enzymes; Z3A.36 36 weeks gestation of pregnancy
CPT/HCPCS: 59025; 36415; 80053; 85027; 86850; 86900; 86901; 82565; 84156; 84550; 86870

== ENCOUNTER 2024-07-20 18:20 | Inpatient (IN) | payer BC, SELFPAY ==
--- NOTE | 2024-07-20 17:24 | W.PM.OBHPL1 ---
Date of service: 07/20/24 Time of Service: 18:00 Assessment and Plan Assessment and plan (1) Elevated liver enzymes: Status: Acute Assessment and plan: P0 @36.3wks with presumed atypical preeclampsia due to elevated LFTs and new onset elevated BPs. The LFTs are not persistently increasing and are slightly down from where they have been. The patient is completely asymptomatic and after the first 1.5hr of her stay her BPs have no longer been technically elevated. Therefore, after discussion with BENJIE Hardy, the decision was made to hold off on magnesium sulfate administration at this point. However, if she develops sxms, BPs or labs worsen, then the plan would be to start Mag. The pt is aware of this possibility. ultrasound today showed appropriate growth with an EFW of 3223g (7lb 2oz), Vtx presentation. Peds aware of her planned induction. We discussed cervical ripening, likely followed by initiation of pitocin. All her questions were answered. (2) : Status: Acute OB-HPI Labor/Delivery History of Present Illness Reason for Visit: atypical preeclampsia Chief Complaint: Signs/Symptoms Gestational HTN (Possible atypical preeclampsia) , Associated Signs and Symptoms of GestationalHTN: elevated LFTs, mildly elevated BPs early today. TRACI Calculator Estimated Delivery Date Method Current WG Current Estimate 08/14/24 LMP (Certain) 36w 3d Other Estimates 08/14/24 Ultrasound #1 36w 3d History of Present Expected Delivery Route/Plan - CNM, to (& collab) @ 35 wks d/t LFT's FOB/fiance - Tito Lantagne (first child) BG Rubella and Varicella non-immune, offer vaccines Wants to avoid epidural, interested in nitrous. Studying hypnobirthing on her own. GBS negative Specific Issues/Plan 1. cfDNA -low risk, CF/SMA negative, AFP declined 2. Anxiety, takes sertraline 50 mg daily 3. RH Neg- Rhogam @ 28 wks given 05/26, FOB blood type unknown 4. LFT's elevated @ 35 wks, normotensive, Hepatitis Panel negative x4 - NST's x2/wk surveillance & BP checks - Hep neg x4, toxo and CMV neg - Normal growth sono 07/20 - suspected atypical PEC Assessment: History Reviewed & Current Narrative: Pt has been monitored for elevated LFTs for the past 1.5wks. They have been going up and down with no clear cause as the patient has remained asymptomatic, other labs have been normal for including a viral panel and BPs were normal range until today. When she first arrived for her NST she had several mildly elevated BPs within the first 1.5hrs. Then they remained normal after that for several more hours. The pt denies persistent headache, RUQ/epigastric pain, n/v, visual changes, fever/chills, contractions, bleeding/loss of fluid, unusual discharge. She had a small amount of swelling overnight but it has resolved now. Review of Systems All systems reviewed & are unremarkable except as noted in HPI and below Constitutional Constitutional: Reports system reviewed and no additional complaints, except as documented Gastrointestinal Gastrointestinal: Denies nausea and Denies vomiting Genitourinary Genitourinary: Reports system reviewed and no additional complaints, except as documented Musculoskeletal Comments: No regular contractions PFSH All Active Problems (Updated 07/16/24 @ 17:25 by Viola Oconnell MD) Elevated liver enzymes (Acute) Susceptible to varicella (non-immune), currently (Acute) Rubella non-immune status, antepartum (Acute) Rh negative state in antepartum period (Acute) Anxiety (Chronic) controlled with sertraline (Acute) Social History Smoking/Tobacco Use Status: Never Smoking risk assessment performed?: Yes Alcohol Intake: never Drug use: Never Housing: house Do you feel safe at home: Yes Do you feel safe in your relationship?: Yes History History 1 Para 0 Hx # Term Pregnancies 0 Multiple births 0 Hx # Pregnancies 0 Ectopic pregnancies 0 AB induced 0 Hx Number of Living Children 0 AB spontaneous 0 Meds Allergies and Home Medications Allergies Allergy/AdvReac Type Severity Reaction Status Date / Time No Known Allergies Allergy Verified 07/10/24 15:50 Home Medications ?Medication ?Instructions ?Recorded ?Confirmed ?Type sertraline 50 mg tablet 50 mg PO DAILY 12/31/23 07/20/24 History vits no.126-ferrous fum 1 tab PO DAILY 01/29/24 07/20/24 History 28 mg iron-folic acid 800 mcg tablet (Classic ) Exam Physical Exam Vital Signs Reviewed: Yes Detailed Labor and Delivery Exam Dilation: 1 Effacement (%): 50 station: -3 Cervix position: mid Consistency: medium Marquez Score: Cervical Points Exam 0 1 2 3 Dilation Closed 1-2cm 3-4 cm 5-6cm Effacement 0-30% 40-50% 60-70% 80% Consistency Firm Medium Soft Station -3 -2 -1,0 +1,+2 Position Posterior Mid Anterior Amniotic Membrane Status: Intact Fetus A Heart Rate Baseline: 135 Monitor Accelerations: 15 X 15 Monitor Decelerations: None Variability: Moderate (6-25 BPM) Presentation: Vertex Categories: Category I Detailed HEENT Exam Head: Present normocephalic and atraumatic Respiratory Exam Respiratory Exam: Normal Detail Cardiovascular Exam Cardiovascular: Present RRR Detailed Abdominal Exam Comments: gravid, nontender No RUQ or epigastric tenderness Detailed Extremities Exam Extremities: Absent edema Detailed Neurological Exam Neurological: Present alert, oriented X3, CN II-XII intact and normal reflexes DetailedPsychiatric Exam Psychiatric: Present normal affect, normal thought process and cooperative Results Results Group Beta Strep: Negative Blood Type: O- Rubella Status: Nonimmune Varicella Immunity: Nonimmune Risk Assessment Risk for Shoulder Dystocia Historical/Initial OB: NEGATIVE FOR: Pelvic Abnormality, Pre- BMI>30, Previous Shoulder Dystocia or Previous Macrosomia Risk for Pre-Eclampsia Date Initiated/Initials: not indicated, jk Yes, if one or more: NEGATIVE FOR: Hx Pre-E/Gest HTN, Chronic HTN, Multiple Gestation, Pre-gestational DM, Renal Disease, Systemic Lupus or APA Syndrome Yes, if 2 or more: POSITIVE FOR: Nulliparity; NEGATIVE FOR: Age>= 35 yrs, >10yr btwn pregnancies, BMI>30, ethinicty, Mother/Sister w/ Pre-E or Previous IUGR Risk for Post- Hemorrhage Initial: NEGATIVE FOR: Multiple Gestation, Previous PPH, Known Clotting Deficiency, Grand Multiparity or Anticoagulation Risks Reviewed Risks Reviewed Upon Admission: Yes
[2024-07-20 18:46] VITALS: BP 132/84; PULSE 63
[2024-07-20 18:51] VITALS: BP 130/83; PULSE 62
[2024-07-20] MEDS: Normal Saline Flush 10 ML SYR IVP (20:00)
[2024-07-20] MEDS: miSOPROStol 25 MCG TAB PO (20:00)
[2024-07-20 20:06] VITALS: BP 139/87; PULSE 56
[2024-07-20 20:21] LABS: INR 0.9 (0.9-1.1); Prothrombin Time 9.1 sec (9.1-11.1)
[2024-07-20 20:33] LABS: HCT 34.7 % (36.0-46.0); HGB 11.8 g/dL (11.2-15.7); MCH 29.7 pg (27.0-33.0); MCV 87 fL (80-95); MPV 11.9 fL (8.0-11.0); Platelet Count 181 10^3/uL (130-400); RBC 3.97 10^6/uL (3.93-5.22); RDW 12.4 % (11.7-14.6); RDW-SD 39.5 fL; WBC 10.76 10^3/uL (4.4-10.8)
[2024-07-20 20:54] LABS: ALT 396 U/L (14-59); AST 210 U/L (15-37); Alkaline Phosphatase 164 U/L (46-116); Anion Gap 11.5 mmol/L (3-11); BUN 11 mg/dL (7-18); Bilirubin, Total 0.49 mg/dL (0.2-1.0); CO2 21.5 mmol/L (21.0-32.0); CREATININE 0.6 mg/dL (0.55-1.02); Calcium 8.4 mg/dL (8.5-10.1); Chloride 109 mmol/L (98-107); Estimated GFR 126.87 (mL/min/1.73m2); Glucose 103 mg/dL (74-106); Potassium 3.7 mmol/L (3.5-5.1); Sodium 142 mmol/L (136-145); Total Protein 5.9 g/dL (6.4-8.2)
[2024-07-20 20:55] VITALS: BP 128/75; PULSE 55; RESP 15
[2024-07-20 22:01] VITALS: BP 132/83; PULSE 56; TEMP 36.4
[2024-07-21] VITALS (100 sets, daily range): BP systolic 116–166; BP diastolic 62–100; PULSE 50–96; RESP 12–18; TEMP 36.7–37; O2SAT 93–100; BMI 33.6
[2024-07-21] MEDS: miSOPROStol 25 MCG TAB PO ×2 (01:22→05:11)
[2024-07-21] MEDS: Normal Saline 10 ML VIAL IJ (04:05)
--- NOTE | 2024-07-21 04:24 | W.PM.PROGNOT ---
Date of Service Date of service: 07/21/24 Time of Service: 04:24 Assessment and Plan Assessment and plan (1) Preeclampsia: Status: Acute Assessment and plan: Pt now with recurrent elevated BPs, though not persistent. Therefore will plan to initiate magnesium sulfate for seizure prophylaxis. Pt is aware of plan and potential side effects. Misoprostol #3 due in about an hour. Repeat am labs ordered. Subjective Subjective Interval history since last seen: Pt developed 2 consistently elevated BPs. Just recently she reported a mild headache. She says she feels like it is from not sleeping soundly. She declines tylenol. She denies other concerns. She has been able to rest intermittently. No change in cramping/contractions. Exam Const General: cooperative, healthy appearing and no acute distress HENMT Head: normocephalic and atraumatic Ears: hearing grossly normal bilaterally Resp Effort & Inspection: normal respiratory effort and able to speak in complete sentences GI Other: Gravid, nontender Neuro General: patient alert and patient awake Extrem Other: 2+dtrs b/l No edema Psych Appearance: grossly normal Mental Status: mental status grossly normal Speech and Movement: speech and movement normal Affect: normal affect Attitude: cooperative Thought Process: normal Thought Content: normal Objective Last Vital Signs Temp 98.2 F 07/21/24 00:11 Pulse 54 L 07/21/24 04:12 Resp 16 07/21/24 01:23 BP 132/76 07/21/24 04:12 Laboratory Results - last 24 hr 07/20/24 20:00 WBC 10.76 RBC 3.97 Hgb 11.8 Hct 34.7 L MCV 87 MCH 29.7 MCHC 34.0 RDW 12.4 Plt Count 181 MPV 11.9 H PT 9.1 INR 0.9 Sodium 142 Potassium 3.7 Chloride 109 H Carbon Dioxide 21.5 Anion Gap 11.5 H BUN 11 Creatinine 0.6 Est GFR (CKD-EPI 2020) 126.87 Glucose 103 Calcium 8.4 L Total Bilirubin 0.49 AST 210 H ALT 396 H Alkaline Phosphatase 164 H Total Protein 5.9 L Albumin 2.0 L Time Spent with Patient Time Spent with Patient: 25-34 minutes Time was spent: preparing to see the patient(eg.review tests), obtaining and/or reviewing separately otained hiistory, ordering medications,tests, procedures and counseling the patient
[2024-07-21] MEDS: MAGNESIUM SULFATE 20 GM/500 ML BAG IV_INF ×2 (04:44→14:52)
[2024-07-21 06:45] LABS: Abs Immature Grans 0.14 10^3/uL (0.0-0.06); Absolute Basophil Count 0.07 10^3/uL (0.0-0.2); Absolute Eosinophil Count 0.12 10^3/uL (0.0-0.7); Absolute Monocyte Count 0.81 10^3/uL (0.1-0.8); Basophils % 0.6 %; HCT 38.2 % (36.0-46.0); HGB 12.9 g/dL (11.2-15.7); Immature Grans % 1.2 %; Lymphocytes % 15.8 %; MCH 29.5 pg (27.0-33.0); MCHC 33.8 % (32.0-36.0); MCV 87 fL (80-95); MPV 11.6 fL (8.0-11.0); Monocytes % 6.9 %; Neutrophils % 74.5 %; Platelet Count 203 10^3/uL (130-400); RBC 4.37 10^6/uL (3.93-5.22); RDW 12.6 % (11.7-14.6); WBC 11.74 10^3/uL (4.4-10.8)
[2024-07-21 06:51] LABS: Absolute Lymphocyte Count 1.85 10^3/uL (1.2-3.4); Absolute Neutrophil Count 8.75 10^3/uL (1.2-6.7)
[2024-07-21 07:13] LABS: ALT 433 U/L (14-59); AST 204 U/L (15-37); Albumin 2.2 g/dL (3.4-5.0); Alkaline Phosphatase 183 U/L (46-116); Anion Gap 6.9 mmol/L (3-11); BUN 12 mg/dL (7-18); Bilirubin, Total 0.76 mg/dL (0.2-1.0); CO2 25.1 mmol/L (21.0-32.0); CREATININE 0.8 mg/dL (0.55-1.02); Calcium 9.3 mg/dL (8.5-10.1); Chloride 107 mmol/L (98-107); Estimated GFR 104.15 (mL/min/1.73m2); Glucose 81 mg/dL (74-106); Potassium 3.7 mmol/L (3.5-5.1); Sodium 139 mmol/L (136-145); Total Protein 6.5 g/dL (6.4-8.2)
[2024-07-21] MEDS: Sertraline 50 MG TAB PO (07:52)
--- NOTE | 2024-07-21 09:26 | W.PM.OBNL1 ---
Date of service: 07/21/24 Time of Service: 09:27 Informed Consent Informed Consent: Augmentation of Labor Pelvic Exam Dilation: 1 Effacement (%): 80 station: 0 Cervix Position: posterior Consistency: soft Contractions Monitor Mode: External Contraction Frequency(min): irregular Fetus A Monitor: External (US) Heart Rate Baseline: 140 Presentation: Cephalic Variability: Moderate (6-25 BPM) Assessment and Plan Assessment and plan (1) HELLP syndrome: Status: Acute Assessment and plan: Atypical help syndrome with elevated liver enzymes, now labile blood pressures. Labor induction today. Continue on magnesium sulfate at 2 g an hour. Mag levels every 6 hours. Begin Pitocin augmentation. Anticipate vaginal . All questions answered. (2) Preeclampsia: Status: Acute (3) : Status: Acute Objective Abnormal lab results 07/20/24 07/21/24 Range/Units 20:00 06:31 WBC 11.74 H (4.4-10.8) 10^3/uL Hct 34.7 L (36.0-46.0) % MPV 11.9 H 11.6 H (8.0-11.0) fL Absolute Neutrophils 8.75 H (1.2-6.7) 10^3/uL Absolute Monocytes 0.81 H (0.1-0.8) 10^3/uL Chloride 109 H (98-107) mmol/L Anion Gap 11.5 H (3-11) mmol/L Calcium 8.4 L (8.5-10.1) mg/dL AST 210 H 204 H (15-37) U/L ALT 396 H 433 H (14-59) U/L Alkaline Phosphatase 164 H 183 H (46-116) U/L Total Protein 5.9 L (6.4-8.2) g/dL Albumin 2.0 L 2.2 L (3.4-5.0) g/dL Temp Pulse Resp BP Pulse Ox 98.6 F 69 12 136/90 99 07/21/24 07:33 07/21/24 09:20 07/21/24 09:20 07/21/24 09:20 07/21/24 07:24 Laboratory Results WBC 11.74 10^3/uL (4.4-10.8) H 07/21/24 06:31 RBC 4.37 10^6/uL (3.93-5.22) 07/21/24 06:31 Hgb 12.9 g/dL (11.2-15.7) 07/21/24 06:31 Hct 38.2 % (36.0-46.0) 07/21/24 06:31 MCV 87 fL (80-95) 07/21/24 06:31 MCH 29.5 pg (27.0-33.0) 07/21/24 06:31 MCHC 33.8 % (32.0-36.0) 07/21/24 06:31 RDW 12.6 % (11.7-14.6) 07/21/24 06:31 Plt Count 203 10^3/uL (130-400) 07/21/24 06:31 MPV 11.6 fL (8.0-11.0) H 07/21/24 06:31 Immature Gran % 1.2 % 07/21/24 06:31 Neutrophils % 74.5 % 07/21/24 06:31 Lymphocytes % 15.8 % 07/21/24 06:31 Monocytes % 6.9 % 07/21/24 06:31 Eosinophils % 1.0 % 07/21/24 06:31 Basophils % 0.6 % 07/21/24 06:31 Nucleated RBC % 0.0 % (0.0-0.3) 07/21/24 06:31 Absolute Neutrophils 8.75 10^3/uL (1.2-6.7) H 07/21/24 06:31 Absolute Lymphocytes 1.85 10^3/uL (1.2-3.4) 07/21/24 06:31 Absolute Monocytes 0.81 10^3/uL (0.1-0.8) H 07/21/24 06:31 Absolute Eosinophils 0.12 10^3/uL (0.0-0.7) 07/21/24 06:31 Absolute Basophils 0.07 10^3/uL (0.0-0.2) 07/21/24 06:31 PT 9.1 sec (9.1-11.1) 07/20/24 20:00 INR 0.9 (0.9-1.1) 07/20/24 20:00 Sodium 139 mmol/L (136-145) 07/21/24 06:31 Potassium 3.7 mmol/L (3.5-5.1) 07/21/24 06:31 Chloride 107 mmol/L (98-107) 07/21/24 06:31 Carbon Dioxide 25.1 mmol/L (21.0-32.0) 07/21/24 06:31 Anion Gap 6.9 mmol/L (3-11) 07/21/24 06:31 BUN 12 mg/dL (7-18) 07/21/24 06:31 Creatinine 0.8 mg/dL (0.55-1.02) 07/21/24 06:31 Est GFR (CKD-EPI 2020) 104.15 (mL/min/1.73m2) 07/21/24 06:31 Glucose 81 mg/dL (74-106) 07/21/24 06:31 Calcium 9.3 mg/dL (8.5-10.1) 07/21/24 06:31 Total Bilirubin 0.76 mg/dL (0.2-1.0) 07/21/24 06:31 AST 204 U/L (15-37) H 07/21/24 06:31 ALT 433 U/L (14-59) H 07/21/24 06:31 Alkaline Phosphatase 183 U/L (46-116) H 07/21/24 06:31 Total Protein 6.5 g/dL (6.4-8.2) 07/21/24 06:31 Albumin 2.2 g/dL (3.4-5.0) L 07/21/24 06:31 Objective Narrative Objective Narrative: Patient seen and examined this morning. Overall doing well. Plan of care discussed with the patient. Cervix is far more favorable. heart rate tracing is a category 1 strip. Blood pressures remain reasonable though somewhat labile. Magnesium running at 2 g an hour. Will check mag levels every 6 hours. Begin Pitocin augmentation in anticipation of vaginal delivery. Results Hemoglobin/Hematocrit: Hgb 12.9 g/dL (11.2-15.7) 07/21/24 06:31 Hct 38.2 % (36.0-46.0) 07/21/24 06:31 Abnormal Lab Findings: Abnormal Labs 07/20/24 07/21/24 20:00 06:31 WBC 11.74 H Hct 34.7 L MPV 11.9 H 11.6 H Absolute Neutrophils 8.75 H Absolute Monocytes 0.81 H Chloride 109 H Anion Gap 11.5 H Calcium 8.4 L AST 210 H 204 H ALT 396 H 433 H Alkaline Phosphatase 164 H 183 H Total Protein 5.9 L Albumin 2.0 L 2.2 L
[2024-07-21] MEDS: Oxytocin/Normal Saline 30 UNIT/500 ML BAG 2 UNITS IV (10:17)
--- NOTE | 2024-07-21 11:01 | W.PM.OBNL1 ---
Date of service: 07/21/24 Time of Service: 11:01 Informed Consent Informed Consent: Augmentation of Labor Pelvic Exam Comments: station per previous note, cervical exam deferred Contractions Monitor Mode: None Fetus A Monitor: External (US) Heart Rate Baseline: 130 Presentation: Vertex Variability: Moderate (6-25 BPM) Categories: Category I FHR Rhythm: Regular Characteristics: Normal Accelerations: 15 X 15 Decelerations: None Amniotic Membrane Status: Intact Assessment and Plan Assessment and plan (1) HELLP syndrome: Status: Acute Assessment and plan: A: at 36w4d IOL atypical HELLP sydrome MgS04 initiated Antihypertensives not in use Cat 1 FHT P: Co-management with Dr. Mccormack. Pitocin ordered in. Reassess with cervical check in 6 hours or as needed d/t change in maternal or status (2) Preeclampsia: Status: Acute Objective Abnormal lab results 07/20/24 07/21/24 Range/Units 20:00 06:31 WBC 11.74 H (4.4-10.8) 10^3/uL Hct 34.7 L (36.0-46.0) % MPV 11.9 H 11.6 H (8.0-11.0) fL Absolute Neutrophils 8.75 H (1.2-6.7) 10^3/uL Absolute Monocytes 0.81 H (0.1-0.8) 10^3/uL Chloride 109 H (98-107) mmol/L Anion Gap 11.5 H (3-11) mmol/L Calcium 8.4 L (8.5-10.1) mg/dL AST 210 H 204 H (15-37) U/L ALT 396 H 433 H (14-59) U/L Alkaline Phosphatase 164 H 183 H (46-116) U/L Total Protein 5.9 L (6.4-8.2) g/dL Albumin 2.0 L 2.2 L (3.4-5.0) g/dL Temp Pulse Resp BP Pulse Ox 98.6 F 69 12 133/86 99 07/21/24 07:33 07/21/24 10:25 07/21/24 10:25 07/21/24 10:07/21/24 07:24 Laboratory Results WBC 11.74 10^3/uL (4.4-10.8) H 07/21/24 06:31 RBC 4.37 10^6/uL (3.93-5.22) 07/21/24 06:31 Hgb 12.9 g/dL (11.2-15.7) 07/21/24 06:31 Hct 38.2 % (36.0-46.0) 07/21/24 06:31 MCV 87 fL (80-95) 07/21/24 06:31 MCH 29.5 pg (27.0-33.0) 07/21/24 06:31 MCHC 33.8 % (32.0-36.0) 07/21/24 06:31 RDW 12.6 % (11.7-14.6) 07/21/24 06:31 Plt Count 203 10^3/uL (130-400) 07/21/24 06:31 MPV 11.6 fL (8.0-11.0) H 07/21/24 06:31 Immature Gran % 1.2 % 07/21/24 06:31 Neutrophils % 74.5 % 07/21/24 06:31 Lymphocytes % 15.8 % 07/21/24 06:31 Monocytes % 6.9 % 07/21/24 06:31 Eosinophils % 1.0 % 07/21/24 06:31 Basophils % 0.6 % 07/21/24 06:31 Nucleated RBC % 0.0 % (0.0-0.3) 07/21/24 06:31 Absolute Neutrophils 8.75 10^3/uL (1.2-6.7) H 07/21/24 06:31 Absolute Lymphocytes 1.85 10^3/uL (1.2-3.4) 07/21/24 06:31 Absolute Monocytes 0.81 10^3/uL (0.1-0.8) H 07/21/24 06:31 Absolute Eosinophils 0.12 10^3/uL (0.0-0.7) 07/21/24 06:31 Absolute Basophils 0.07 10^3/uL (0.0-0.2) 07/21/24 06:31 PT 9.1 sec (9.1-11.1) 07/20/24 20:00 INR 0.9 (0.9-1.1) 07/20/24 20:00 Sodium 139 mmol/L (136-145) 07/21/24 06:31 Potassium 3.7 mmol/L (3.5-5.1) 07/21/24 06:31 Chloride 107 mmol/L (98-107) 07/21/24 06:31 Carbon Dioxide 25.1 mmol/L (21.0-32.0) 07/21/24 06:31 Anion Gap 6.9 mmol/L (3-11) 07/21/24 06:31 BUN 12 mg/dL (7-18) 07/21/24 06:31 Creatinine 0.8 mg/dL (0.55-1.02) 07/21/24 06:31 Est GFR (CKD-EPI 2020) 104.15 (mL/min/1.73m2) 07/21/24 06:31 Glucose 81 mg/dL (74-106) 07/21/24 06:31 Calcium 9.3 mg/dL (8.5-10.1) 07/21/24 06:31 Total Bilirubin 0.76 mg/dL (0.2-1.0) 07/21/24 06:31 AST 204 U/L (15-37) H 07/21/24 06:31 ALT 433 U/L (14-59) H 07/21/24 06:31 Alkaline Phosphatase 183 U/L (46-116) H 07/21/24 06:31 Total Protein 6.5 g/dL (6.4-8.2) 07/21/24 06:31 Albumin 2.2 g/dL (3.4-5.0) L 07/21/24 06:31 Vital Signs Reviewed: Yes Subjective Patient Reports: No new Complaints Interval history since last seen: Patient comfortable laying on side in bed. Discussed current plan of care, patient and partner have no new questions. We reviewed pain management options together and patient is open to trying all methods and will alert her RN when pain management is needed. Pitocin not started at this point however we discussed common sensations with contractions and coping mechanisms. Nafisa would like co-managed CNM/MD care during her labor. Results Hemoglobin/Hematocrit: Hgb 12.9 g/dL (11.2-15.7) 07/21/24 06:31 Hct 38.2 % (36.0-46.0) 07/21/24 06:31 Abnormal Lab Findings: Abnormal Labs 07/20/24 07/21/24 20:00 06:31 WBC 11.74 H Hct 34.7 L MPV 11.9 H 11.6 H Absolute Neutrophils 8.75 H Absolute Monocytes 0.81 H Chloride 109 H Anion Gap 11.5 H Calcium 8.4 L AST 210 H 204 H ALT 396 H 433 H Alkaline Phosphatase 164 H 183 H Total Protein 5.9 L Albumin 2.0 L 2.2 L
--- NOTE | 2024-07-21 12:00 | W.PM.OBNL1 ---
Date of service: 07/21/24 Time of Service: 12:00 Informed Consent Informed Consent: Augmentation of Labor Objective Abnormal lab results 07/20/24 07/21/24 07/21/24 Range/Units 20:00 06:31 10:55 WBC 11.74 H (4.4-10.8) 10^3/uL Hct 34.7 L (36.0-46.0) % MPV 11.9 H 11.6 H (8.0-11.0) fL Absolute Neutrophils 8.75 H (1.2-6.7) 10^3/uL Absolute Monocytes 0.81 H (0.1-0.8) 10^3/uL Chloride 109 H (98-107) mmol/L Anion Gap 11.5 H (3-11) mmol/L Calcium 8.4 L (8.5-10.1) mg/dL Magnesium 6.0 H* (1.8-2.4) mg/dL AST 210 H 204 H (15-37) U/L ALT 396 H 433 H (14-59) U/L Alkaline Phosphatase 164 H 183 H (46-116) U/L Total Protein 5.9 L (6.4-8.2) g/dL Albumin 2.0 L 2.2 L (3.4-5.0) g/dL Temp Pulse Resp BP Pulse Ox 98.6 F 69 12 133/86 99 07/21/24 07:33 07/21/24 10:25 07/21/24 10:25 07/21/24 10:25 07/21/24 07:24 Laboratory Results WBC 11.74 10^3/uL (4.4-10.8) H 07/21/24 06:31 RBC 4.37 10^6/uL (3.93-5.22) 07/21/24 06:31 Hgb 12.9 g/dL (11.2-15.7) 07/21/24 06:31 Hct 38.2 % (36.0-46.0) 07/21/24 06:31 MCV 87 fL (80-95) 07/21/24 06:31 MCH 29.5 pg (27.0-33.0) 07/21/24 06:31 MCHC 33.8 % (32.0-36.0) 07/21/24 06:31 RDW 12.6 % (11.7-14.6) 07/21/24 06:31 Plt Count 203 10^3/uL (130-400) 07/21/24 06:31 MPV 11.6 fL (8.0-11.0) H 07/21/24 06:31 Immature Gran % 1.2 % 07/21/24 06:31 Neutrophils % 74.5 % 07/21/24 06:31 Lymphocytes % 15.8 % 07/21/24 06:31 Monocytes % 6.9 % 07/21/24 06:31 Eosinophils % 1.0 % 07/21/24 06:31 Basophils % 0.6 % 07/21/24 06:31 Nucleated RBC % 0.0 % (0.0-0.3) 07/21/24 06:31 Absolute Neutrophils 8.75 10^3/uL (1.2-6.7) H 07/21/24 06:31 Absolute Lymphocytes 1.85 10^3/uL (1.2-3.4) 07/21/24 06:31 Absolute Monocytes 0.81 10^3/uL (0.1-0.8) H 07/21/24 06:31 Absolute Eosinophils 0.12 10^3/uL (0.0-0.7) 07/21/24 06:31 Absolute Basophils 0.07 10^3/uL (0.0-0.2) 07/21/24 06:31 PT 9.1 sec (9.1-11.1) 07/20/24 20:00 INR 0.9 (0.9-1.1) 07/20/24 20:00 Sodium 139 mmol/L (136-145) 07/21/24 06:31 Potassium 3.7 mmol/L (3.5-5.1) 07/21/24 06:31 Chloride 107 mmol/L (98-107) 07/21/24 06:31 Carbon Dioxide 25.1 mmol/L (21.0-32.0) 07/21/24 06:31 Anion Gap 6.9 mmol/L (3-11) 07/21/24 06:31 BUN 12 mg/dL (7-18) 07/21/24 06:31 Creatinine 0.8 mg/dL (0.55-1.02) 07/21/24 06:31 Est GFR (CKD-EPI 2020) 104.15 (mL/min/1.73m2) 07/21/24 06:31 Glucose 81 mg/dL (74-106) 07/21/24 06:31 Calcium 9.3 mg/dL (8.5-10.1) 07/21/24 06:31 Magnesium 6.0 mg/dL (1.8-2.4) H* 07/21/24 10:55 Total Bilirubin 0.76 mg/dL (0.2-1.0) 07/21/24 06:31 AST 204 U/L (15-37) H 07/21/24 06:31 ALT 433 U/L (14-59) H 07/21/24 06:31 Alkaline Phosphatase 183 U/L (46-116) H 07/21/24 06:31 Total Protein 6.5 g/dL (6.4-8.2) 07/21/24 06:31 Albumin 2.2 g/dL (3.4-5.0) L 07/21/24 06:31 Subjective Interval history since last seen: Lab called with critical magnesium level of 6.0. Will decrease magnesium rate to 1/h in order to maintain a therapeutic range greater than 4 but not as high as 10. Patient will have comanagement with our midwifery service. They will manage labor, we will manage her magnesium and hypertension. All questions answered. Results Hemoglobin/Hematocrit: Hgb 12.9 g/dL (11.2-15.7) 07/21/24 06:31 Hct 38.2 % (36.0-46.0) 07/21/24 06:31 Abnormal Lab Findings: Abnormal Labs 07/20/24 07/21/24 07/21/24 20:00 06:31 10:55 WBC 11.74 H Hct 34.7 L MPV 11.9 H 11.6 H Absolute Neutrophils 8.75 H Absolute Monocytes 0.81 H Chloride 109 H Anion Gap 11.5 H Calcium 8.4 L Magnesium 6.0 H* AST 210 H 204 H ALT 396 H 433 H Alkaline Phosphatase 164 H 183 H Total Protein 5.9 L Albumin 2.0 L 2.2 L
--- NOTE | 2024-07-21 15:50 | W.PM.OBNL1 ---
Date of service: 07/21/24 Time of Service: 15:50 Informed Consent Informed Consent: Augmentation of Labor Pelvic Exam Dilation: 2.5 Effacement (%): 80 station: +1 Position: JASE Cervix Position: mid Consistency: medium Vaginal Exam Presentation: Vertex Contractions Monitor Mode: External Contraction Frequency(min): q2-4 Contraction Duration(sec): 60 Intensity: Moderate Fetus A Monitor: External (US) Heart Rate Baseline: 130 Presentation: Vertex Variability: Moderate (6-25 BPM) Categories: Category I FHR Rhythm: Regular Characteristics: Normal Accelerations: 15 X 15 Decelerations: None Amniotic Membrane Status: Ruptured Assessment and Plan Assessment and plan (1) HELLP syndrome: Status: Acute Assessment and plan: A: 36w4d IOL HELLP syndrome Pitocin @ 18mU/min ROM 1500 Progressive Descent P: Appropriate for continued co-management with Dr. Mccormack. Continue Pitocin at current rate. Pain management per patient request. Next SVE when clinically indicated. Objective Abnormal lab results 07/20/24 07/21/24 07/21/24 Range/Units 20:00 06:31 10:55 WBC 11.74 H (4.4-10.8) 10^3/uL Hct 34.7 L (36.0-46.0) % MPV 11.9 H 11.6 H (8.0-11.0) fL Absolute Neutrophils 8.75 H (1.2-6.7) 10^3/uL Absolute Monocytes 0.81 H (0.1-0.8) 10^3/uL Chloride 109 H (98-107) mmol/L Anion Gap 11.5 H (3-11) mmol/L Calcium 8.4 L (8.5-10.1) mg/dL Magnesium 6.0 H* (1.8-2.4) mg/dL AST 210 H 204 H (15-37) U/L ALT 396 H 433 H (14-59) U/L Alkaline Phosphatase 164 H 183 H (46-116) U/L Total Protein 5.9 L (6.4-8.2) g/dL Albumin 2.0 L 2.2 L (3.4-5.0) g/dL Temp Pulse Resp BP Pulse Ox 98.4 F 66 18 131/83 98 07/21/24 15:13 07/21/24 15:13 07/21/24 15:13 07/21/24 15:13 07/21/24 15:13 Laboratory Results WBC 11.74 10^3/uL (4.4-10.8) H 07/21/24 06:31 RBC 4.37 10^6/uL (3.93-5.22) 07/21/24 06:31 Hgb 12.9 g/dL (11.2-15.7) 07/21/24 06:31 Hct 38.2 % (36.0-46.0) 07/21/24 06:31 MCV 87 fL (80-95) 07/21/24 06:31 MCH 29.5 pg (27.0-33.0) 07/21/24 06:31 MCHC 33.8 % (32.0-36.0) 07/21/24 06:31 RDW 12.6 % (11.7-14.6) 07/21/24 06:31 Plt Count 203 10^3/uL (130-400) 07/21/24 06:31 MPV 11.6 fL (8.0-11.0) H 07/21/24 06:31 Immature Gran % 1.2 % 07/21/24 06:31 Neutrophils % 74.5 % 07/21/24 06:31 Lymphocytes % 15.8 % 07/21/24 06:31 Monocytes % 6.9 % 07/21/24 06:31 Eosinophils % 1.0 % 07/21/24 06:31 Basophils % 0.6 % 07/21/24 06:31 Nucleated RBC % 0.0 % (0.0-0.3) 07/21/24 06:31 Absolute Neutrophils 8.75 10^3/uL (1.2-6.7) H 07/21/24 06:31 Absolute Lymphocytes 1.85 10^3/uL (1.2-3.4) 07/21/24 06:31 Absolute Monocytes 0.81 10^3/uL (0.1-0.8) H 07/21/24 06:31 Absolute Eosinophils 0.12 10^3/uL (0.0-0.7) 07/21/24 06:31 Absolute Basophils 0.07 10^3/uL (0.0-0.2) 07/21/24 06:31 PT 9.1 sec (9.1-11.1) 07/20/24 20:00 INR 0.9 (0.9-1.1) 07/20/24 20:00 Sodium 139 mmol/L (136-145) 07/21/24 06:31 Potassium 3.7 mmol/L (3.5-5.1) 07/21/24 06:31 Chloride 107 mmol/L (98-107) 07/21/24 06:31 Carbon Dioxide 25.1 mmol/L (21.0-32.0) 07/21/24 06:31 Anion Gap 6.9 mmol/L (3-11) 07/21/24 06:31 BUN 12 mg/dL (7-18) 07/21/24 06:31 Creatinine 0.8 mg/dL (0.55-1.02) 07/21/24 06:31 Est GFR (CKD-EPI 2020) 104.15 (mL/min/1.73m2) 07/21/24 06:31 Glucose 81 mg/dL (74-106) 07/21/24 06:31 Calcium 9.3 mg/dL (8.5-10.1) 07/21/24 06:31 Magnesium 6.0 mg/dL (1.8-2.4) H* 07/21/24 10:55 Total Bilirubin 0.76 mg/dL (0.2-1.0) 07/21/24 06:31 AST 204 U/L (15-37) H 07/21/24 06:31 ALT 433 U/L (14-59) H 07/21/24 06:31 Alkaline Phosphatase 183 U/L (46-116) H 07/21/24 06:31 Total Protein 6.5 g/dL (6.4-8.2) 07/21/24 06:31 Albumin 2.2 g/dL (3.4-5.0) L 07/21/24 06:31 Vital Signs Reviewed: Yes Notable Details: Magnesium 6.0 Subjective Patient Reports: New Complaints (contraction pain increasing in low back and sacrum) Interval history since last seen: ROM blood tinged fluid about 1500, would like to get in the shower. Results Hemoglobin/Hematocrit: Hgb 12.9 g/dL (11.2-15.7) 07/21/24 06:31 Hct 38.2 % (36.0-46.0) 07/21/24 06:31 Abnormal Lab Findings: Abnormal Labs 07/20/24 07/21/24 07/21/24 20:00 06:31 10:55 WBC 11.74 H Hct 34.7 L MPV 11.9 H 11.6 H Absolute Neutrophils 8.75 H Absolute Monocytes 0.81 H Chloride 109 H Anion Gap 11.5 H Calcium 8.4 L Magnesium 6.0 H* AST 210 H 204 H ALT 396 H 433 H Alkaline Phosphatase 164 H 183 H Total Protein 5.9 L Albumin 2.0 L 2.2 L
[2024-07-21] MEDS: FentaNYL/ROPIvacaine 2 mcg/ml and 0.1% 200 ML CADD Cassette EP (16:54)
--- NOTE | 2024-07-21 17:53 | ANES.PREOP_ITS ---
General Info Date of Service Date Performed: 07/21/24 Height: 5 ft 3 in Weight: 86.183 kg Body Mass Index (BMI): 33.6 Meds Allergies and Home Medications Allergies Allergy/AdvReac Type Severity Reaction Status Date / Time No Known Allergies Allergy Verified 07/10/24 15:50 Home Medication ?Medication ?Instructions ?Recorded sertraline 50 mg tablet 50 mg PO DAILY 12/31/23 vits no.126-ferrous fum 1 tab PO DAILY 01/29/24 28 mg iron-folic acid 800 mcg tablet (Classic ) Current Visit Medications: Current Medications Generic Name Dose Route Start Last Admin Trade Name Freq PRN Reason Stop Dose Admin Fentanyl/Ropivacaine 200 ml 07/21/24 16:30 07/21/24 16:54 Fentanyl/Ropivacaine 2 Mcg/Ml And 0.1% 200 Ml Cadd Cassette EP 200 ml DIRECTED REGINE Administration Ringer's Solution 1,000 mls @ 200 mls/hr 07/20/24 17:30 IV INFUSION REGINE Magnesium Sulfate 20 gm in 500 mls @ 50 mls/hr 07/21/24 04:30 07/21/24 14:52 IV_INF 1 gm/hr INFUSION REGINE 25 mls/hr Administration Protocol 2 GM/HR Oxytocin/Sodium Chloride 30 unit in 500 mls @ 2 mls/hr 07/21/24 10:00 07/21/24 17:20 Pitocin/Normal Saline IV 5 milliunits/min INFUSION REGINE 5 mls/hr Titration Protocol 2 MILLIUNITS/MIN IV Miscellaneous Supplies 1 each 07/21/24 04:30 Iv Access IV DIRECTED REGINE Sertraline HCl 50 mg 07/21/24 08:00 07/21/24 16:55 Sertraline 50 Mg Tab PO Not Given DAILY REGINE Sodium Chloride 0 ml 07/21/24 04:22 Normal Saline Flush 10 Ml Syr IVP PRN PRN Sodium Chloride 0 ml 07/21/24 08:30 07/21/24 16:55 Normal Saline Flush 10 Ml Syr IVP Not Given BID REGINE Sodium Chloride 0 ml 07/21/24 04:22 Normal Saline 10 Ml Vial IJ DIRECTED PRN Terbutaline Sulfate 0.25 mg 07/20/24 17:18 Terbutaline 1 Mg/Ml Vial SC PRN PRN PFSH Active Problems Active Problems: Problem Status Onset Code HELLP syndrome Acute O14.20 Preeclampsia Acute O14.90 Elevated liver enzymes Acute R74.8 Susceptible to varicella (non-immune), currently Acute O09.899, Z28.39 Rubella non-immune status, antepartum Acute O09.899, Z28.39 Rh negative state in antepartum period Acute O26.899, Z67.91 Anxiety Chronic F41.9 Acute Z34.90 Tobacco Smoking/Tobacco Use Status: Never Alcohol Alcohol Intake: never Substance Use Substance use: Never Prental History History 2 1 Para 0 Hx # Term Pregnancies 0 Multiple births 0 Hx # Pregnancies 0 Ectopic pregnancies 0 AB induced 0 Hx Number of Living Children 0 AB spontaneous 0 Vital Signs and Lab Results Vital Signs Most Recent Vital Signs in EMR: Most Recent Vital Signs Temp Pulse Resp BP Pulse Ox 36.9 C 63 18 133/81 100 07/21/24 15:13 07/21/24 17:43 07/21/24 15:13 07/21/24 17:43 07/21/24 17:18 Lab Results 07/21/24 06:31 07/21/24 06:31 Blood Type / Crossmatch: 2 Antibody Screen POSITIVE 07/20/24 Complete Blood Count: 2 White Blood Count 11.74 10^3/uL (4.4-10.8) H 07/21/24 06:31 Red Blood Count 4.37 10^6/uL (3.93-5.22) 07/21/24 06:31 Hemoglobin 12.9 g/dL (11.2-15.7) 07/21/24 06:31 Hematocrit 38.2 % (36.0-46.0) 07/21/24 06:31 Platelet Count 203 10^3/uL (130-400) 07/21/24 06:31 Complete Metabolic Panel: 2 Sodium 139 mmol/L (136-145) 07/21/24 06:31 Potassium 3.7 mmol/L (3.5-5.1) 07/21/24 06:31 Chloride 107 mmol/L (98-107) 07/21/24 06:31 Carbon Dioxide 25.1 mmol/L (21.0-32.0) 07/21/24 06:31 BUN 12 mg/dL (7-18) 07/21/24 06:31 Creatinine 0.8 mg/dL (0.55-1.02) 07/21/24 06:31 Est GFR (CKD-EPI 2020) 104.15 (mL/min/1.73m2) 07/21/24 06:31 Magnesium 6.0 mg/dL (1.8-2.4) H* 07/21/24 10:55 Calcium 9.3 mg/dL (8.5-10.1) 07/21/24 06:31 Albumin 2.2 g/dL (3.4-5.0) L 07/21/24 06:31 Glucose 81 mg/dL (74-106) 07/21/24 06:31 Liver Function Panel: 2 Alanine Aminotransferase (ALT/SGPT) 433 U/L (14-59) H 07/21/24 06:31 Aspartate Amino Transf (AST/SGOT) 204 U/L (15-37) H 07/21/24 06 :31 Coagulation Panel: 2 INR International Normalized Ratio 0.9 (0.9-1.1) 07/20/24 20:0 0 Prothrombin Time 9.1 sec (9.1-11.1) 07/20/24 20:00 Activated Partial Thromboplast Time TNP 07/17/24 17: 13 Fibrinogen TNP 07/17/24 17:30 Cardiac Panel: 2 No Data to Display Arterial Blood Gas: 2 No Data to Display Venous Blood Gas: 2 No Data to Display Pancreas Panel: 2 Amylase Level 53 U/L (25-115) 07/13/24 15:11 Lipase 25 U/L (<78) 07/13/24 15:11 Thyroid Panel: 2 No Data to Display Infectious Disease: 2 Hepatitis B Surface Antigen Negative (Negative) 07/13/24 15:11 Hepatitis C Antibody Negative (Negative) 07/13/24 15:11 Blood Cultures: 2 No Data to Display Toxicology Panel: 2 No Data to Display Panel: 2 No Data to Display Anesthesia Assessment and Plan Anesthesia History Personal History: No History of Anesthesia Complications Family History: No Family History of Anesthesia Complications Exercise Tolerance Exercise Tolerance: Metabolic Equivalents>4 Pertinent Negatives Pertinent Negatives: No Symptoms of GERD Cardiac & Pulmonary Exam Cardiac Exam: Normal S1/S2 Heart Sounds Pulmonary Exam: Clear Bilateral Breath Sounds Implantable Cardiac Device Does patient have a Pacemaker or an ICD?: No Airway Exam Known Difficult Airway: No Mallampati Class: 2 Mouth Opening: Normal (> 3cm) Thyromental Distance: Greater than 3 cm Neck Range of Motion: Full ROM Neck Circumference: Normal Teeth Condition: Normal Dentition ASA Classification ASA Score: ASA 3 Emergency Case?: No NPO Status NPO Status: NPO Clears >2 hours, Solids >8 hours Status Status: Confirmed (full term) Anesthesia Plan Resuscitation Status: Full Code Anesthesia Technique: Labor Epidural Airway Planned: Natural Airway Monitors Used: Standard Monitors Preoperative Comments:: P0 @36.3wks with presumed atypical preeclampsia due to elevated LFTs and new onset elevated BPs. Tawny Smith CRNA
--- NOTE | 2024-07-21 17:56 | W.ANESNEU ---
Epidural/Spinal Catheter Date Performed: 07/21/24 Procedure Start: 17:00 Procedure Stop: 17:30 Requesting Provider: Alma Mccormack Procedure Location: Obstetrics Reason Performed: Labor Epidural Standard Monitors Applied: ECG, Blood Pressure and See EMR for corresponding vital signs Patient Position: Sitting Sedation Given (Indicate Dose Given): No Sedation given Patient Mental Status: Awake Sterility: Hand Hygiene, Surgical Cap, Surgical Mask, Sterile Gloves, Sterile Drape/Sheet, Eye Protection and Chlorhexidine Procedure Location: L3-L4 Interspace Epidural Needle: Tuohy 18 Gauge Needle Length: 3.5 Inch Needle Approach: Midline Epidural Procedure: Skin Prepped, Sterile Drape Placed, 1% Lidocaine to skin and subcutaneous tissue with 25G needle, Tuohy Needle placed, FIONA to Saline Used, Epidural Catheter Placed, Negative Heme, Negative CSF Flow and Tuohy Needle Removed Catheter Placed?: Catheter Placed Test Dose (Indicate Dose Given): 3ml 1.5% Lidocaine with 1:200K Epinephrine Given and Negative Test Dose Loss of Resistance Depth (cm): 7 Catheter depth at skin (cm): 12 Dressing: [place] Dressing Placed, Tegaderm Applied, Mastisol Used and Dressing reinforced with Tape Epidural Provider Bolus (Indicate Dose Given): Total Ropivacaine 0.1% with Fentanyl 2mcg/ml Given from pump. (ml) Dose:: 7cc Additives (Indicate Dose Given ): None Infusion Medication: Medication Infusion Began Medication Infusion: Ropivacaine 0.1% with Fentanyl 2mcg/ml Maintenance Infusion Rate (ml/hour): 10 PCEA Bolus Dose (ml): 5 Post Procedure Pain score (0-10): 0 Block Level: T9 Paresthesia: None Ultrasound: Used to sal[place] site Number of Attempts (See previous attempts in note section): 2 (unable to pass cath on first attempt) Procedure Tolerated: No Complications and Patient tolerated well Procedure Outcome: Successful Performed By: Johnathan Smith
[2024-07-21 18:34] LABS: Magnesium 5.5 mg/dL (1.8-2.4)
--- NOTE | 2024-07-21 19:18 | W.PM.OBNL1 ---
Date of service: 07/21/24 Time of Service: 19:18 Informed Consent Informed Consent: Augmentation of Labor Pelvic Exam Dilation: 9.5 Effacement (%): 100 station: +1 Contractions Contraction Frequency(min): 3-4 Contraction Duration(sec): 60 Fetus A Monitor: External (US) Heart Rate Baseline: 120 Variability: Moderate (6-25 BPM) Categories: Category I Assessment and Plan Assessment and plan (1) Preeclampsia: Status: Acute Assessment and plan: Preeclampsia with severe features. Labor induction for that reason. Patient is now an anterior lip, +1 station. Comfortable with epidural. Blood pressures have remained stable. Mag level is 5.5 on 1 g/h. Urine output is appropriate. Anticipate second stage in the relatively near future. Expected vaginal . Patient will be laboring with the consulting sales executive shortly. (2) HELLP syndrome: Status: Acute Assessment and plan: Repeat labs in the a.m. repeat labs in the morning repeat lab workLabs in AM (3) : Status: Acute Objective Abnormal lab results 07/20/24 07/21/24 07/21/24 Range/Units 20:00 06:31 10:55 WBC 11.74 H (4.4-10.8) 10^3/uL Hct 34.7 L (36.0-46.0) % MPV 11.9 H 11.6 H (8.0-11.0) fL Absolute Neutrophils 8.75 H (1.2-6.7) 10^3/uL Absolute Monocytes 0.81 H (0.1-0.8) 10^3/uL Chloride 109 H (98-107) mmol/L Anion Gap 11.5 H (3-11) mmol/L Calcium 8.4 L (8.5-10.1) mg/dL Magnesium 6.0 H* (1.8-2.4) mg/dL AST 210 H 204 H (15-37) U/L ALT 396 H 433 H (14-59) U/L Alkaline Phosphatase 164 H 183 H (46-116) U/L Total Protein 5.9 L (6.4-8.2) g/dL Albumin 2.0 L 2.2 L (3.4-5.0) g/dL 07/21/24 Range/Units 18:00 WBC (4.4-10.8) 10^3/uL Hct (36.0-46.0) % MPV (8.0-11.0) fL Absolute Neutrophils (1.2-6.7) 10^3/uL Absolute Monocytes (0.1-0.8) 10^3/uL Chloride (98-107) mmol/L Anion Gap (3-11) mmol/L Calcium (8.5-10.1) mg/dL Magnesium 5.5 H* (1.8-2.4) mg/dL AST (15-37) U/L ALT (14-59) U/L Alkaline Phosphatase (46-116) U/L Total Protein (6.4-8.2) g/dL Albumin (3.4-5.0) g/dL Temp Pulse Resp BP Pulse Ox 98.2 F 66 18 135/85 100 07/21/24 18:19 07/21/24 19:14 07/21/24 15:13 07/21/24 19:14 07/21/24 17:18 Laboratory Results WBC 11.74 10^3/uL (4.4-10.8) H 07/21/24 06:31 RBC 4.37 10^6/uL (3.93-5.22) 07/21/24 06:31 Hgb 12.9 g/dL (11.2-15.7) 07/21/24 06:31 Hct 38.2 % (36.0-46.0) 07/21/24 06:31 MCV 87 fL (80-95) 07/21/24 06:31 MCH 29.5 pg (27.0-33.0) 07/21/24 06:31 MCHC 33.8 % (32.0-36.0) 07/21/24 06:31 RDW 12.6 % (11.7-14.6) 07/21/24 06:31 Plt Count 203 10^3/uL (130-400) 07/21/24 06:31 MPV 11.6 fL (8.0-11.0) H 07/21/24 06:31 Immature Gran % 1.2 % 07/21/24 06:31 Neutrophils % 74.5 % 07/21/24 06:31 Lymphocytes % 15.8 % 07/21/24 06:31 Monocytes % 6.9 % 07/21/24 06:31 Eosinophils % 1.0 % 07/21/24 06:31 Basophils % 0.6 % 07/21/24 06:31 Nucleated RBC % 0.0 % (0.0-0.3) 07/21/24 06:31 Absolute Neutrophils 8.75 10^3/uL (1.2-6.7) H 07/21/24 06:31 Absolute Lymphocytes 1.85 10^3/uL (1.2-3.4) 07/21/24 06:31 Absolute Monocytes 0.81 10^3/uL (0.1-0.8) H 07/21/24 06:31 Absolute Eosinophils 0.12 10^3/uL (0.0-0.7) 07/21/24 06:31 Absolute Basophils 0.07 10^3/uL (0.0-0.2) 07/21/24 06:31 PT 9.1 sec (9.1-11.1) 07/20/24 20:00 INR 0.9 (0.9-1.1) 07/20/24 20:00 Sodium 139 mmol/L (136-145) 07/21/24 06:31 Potassium 3.7 mmol/L (3.5-5.1) 07/21/24 06:31 Chloride 107 mmol/L (98-107) 07/21/24 06:31 Carbon Dioxide 25.1 mmol/L (21.0-32.0) 07/21/24 06:31 Anion Gap 6.9 mmol/L (3-11) 07/21/24 06:31 BUN 12 mg/dL (7-18) 07/21/24 06:31 Creatinine 0.8 mg/dL (0.55-1.02) 07/21/24 06:31 Est GFR (CKD-EPI 2020) 104.15 (mL/min/1.73m2) 07/21/24 06:31 Glucose 81 mg/dL (74-106) 07/21/24 06:31 Calcium 9.3 mg/dL (8.5-10.1) 07/21/24 06:31 Magnesium 5.5 mg/dL (1.8-2.4) H* 07/21/24 18:00 Total Bilirubin 0.76 mg/dL (0.2-1.0) 07/21/24 06:31 AST 204 U/L (15-37) H 07/21/24 06:31 ALT 433 U/L (14-59) H 07/21/24 06:31 Alkaline Phosphatase 183 U/L (46-116) H 07/21/24 06:31 Total Protein 6.5 g/dL (6.4-8.2) 07/21/24 06:31 Albumin 2.2 g/dL (3.4-5.0) L 07/21/24 06:31 Subjective Interval history since last seen: Patient seen. Very comfortable with epidural. Change in heart rate baseline. Patient is experiencing some rectal pressure. heart tones 120s moderate variability. Most recent mag level 5.5. Will continue with 1 g/h. Results Hemoglobin/Hematocrit: Hgb 12.9 g/dL (11.2-15.7) 07/21/24 06:31 Hct 38.2 % (36.0-46.0) 07/21/24 06:31 Abnormal Lab Findings: Abnormal Labs 07/20/24 07/21/24 07/21/24 20:00 06:31 10:55 WBC 11.74 H Hct 34.7 L MPV 11.9 H 11.6 H Absolute Neutrophils 8.75 H Absolute Monocytes 0.81 H Chloride 109 H Anion Gap 11.5 H Calcium 8.4 L Magnesium 6.0 H* AST 210 H 204 H ALT 396 H 433 H Alkaline Phosphatase 164 H 183 H Total Protein 5.9 L Albumin 2.0 L 2.2 L 07/21/24 18:00 WBC Hct MPV Absolute Neutrophils Absolute Monocytes Chloride Anion Gap Calcium Magnesium 5.5 H* AST ALT Alkaline Phosphatase Total Protein Albumin
[2024-07-21] MEDS: miSOPROStol 200 MCG TAB 400 MCG SL (20:40)
--- NOTE | 2024-07-21 20:47 | W.PM.OBNL1 ---
Date of service: 07/21/24 Time of Service: 20:47 Informed Consent Informed Consent: Augmentation of Labor Pelvic Exam Dilation: 10 Effacement (%): 100 station: +2 Position: OA Contractions Monitor Mode: External Contraction Frequency(min): q2-3 Contraction Duration(sec): 60 Intensity: Moderate/Strong Fetus A Monitor: External (US) Heart Rate Baseline: 125 Presentation: Vertex Variability: Minimal (1-5 BPM) Categories: Category II FHR Rhythm: Regular Characteristics: Normal Accelerations: 15 X 15 Decelerations: None Amniotic Membrane Status: Ruptured Assessment and Plan Assessment and plan (1) HELLP syndrome: Status: Acute Assessment and plan: A: Second stage Pushing x 1 hr Cat 1-Cat2 FHT FSE in place Descent to +2 station P: updated. Continue pushing, anticipated. Reassess 1 hr Objective Abnormal lab results 07/20/24 07/21/24 07/21/24 Range/Units 20:00 06:31 10:55 WBC 11.74 H (4.4-10.8) 10^3/uL MPV 11.6 H (8.0-11.0) fL Absolute Neutrophils 8.75 H (1.2-6.7) 10^3/uL Absolute Monocytes 0.81 H (0.1-0.8) 10^3/uL Chloride 109 H (98-107) mmol/L Anion Gap 11.5 H (3-11) mmol/L Calcium 8.4 L (8.5-10.1) mg/dL Magnesium 6.0 H* (1.8-2.4) mg/dL AST 210 H 204 H (15-37) U/L ALT 396 H 433 H (14-59) U/L Alkaline Phosphatase 164 H 183 H (46-116) U/L Total Protein 5.9 L (6.4-8.2) g/dL Albumin 2.0 L 2.2 L (3.4-5.0) g/dL 07/21/24 Range/Units 18:00 WBC (4.4-10.8) 10^3/uL MPV (8.0-11.0) fL Absolute Neutrophils (1.2-6.7) 10^3/uL Absolute Monocytes (0.1-0.8) 10^3/uL Chloride (98-107) mmol/L Anion Gap (3-11) mmol/L Calcium (8.5-10.1) mg/dL Magnesium 5.5 H* (1.8-2.4) mg/dL AST (15-37) U/L ALT (14-59) U/L Alkaline Phosphatase (46-116) U/L Total Protein (6.4-8.2) g/dL Albumin (3.4-5.0) g/dL Temp Pulse Resp BP Pulse Ox 98.2 F 69 18 130/74 100 07/21/24 18:19 07/21/24 20:29 07/21/24 15:13 07/21/24 20:29 07/21/24 17:18 Laboratory Results WBC 11.74 10^3/uL (4.4-10.8) H 07/21/24 06:31 RBC 4.37 10^6/uL (3.93-5.22) 07/21/24 06:31 Hgb 12.9 g/dL (11.2-15.7) 07/21/24 06:31 Hct 38.2 % (36.0-46.0) 07/21/24 06:31 MCV 87 fL (80-95) 07/21/24 06:31 MCH 29.5 pg (27.0-33.0) 07/21/24 06:31 MCHC 33.8 % (32.0-36.0) 07/21/24 06:31 RDW 12.6 % (11.7-14.6) 07/21/24 06:31 Plt Count 203 10^3/uL (130-400) 07/21/24 06:31 MPV 11.6 fL (8.0-11.0) H 07/21/24 06:31 Immature Gran % 1.2 % 07/21/24 06:31 Neutrophils % 74.5 % 07/21/24 06:31 Lymphocytes % 15.8 % 07/21/24 06:31 Monocytes % 6.9 % 07/21/24 06:31 Eosinophils % 1.0 % 07/21/24 06:31 Basophils % 0.6 % 07/21/24 06:31 Nucleated RBC % 0.0 % (0.0-0.3) 07/21/24 06:31 Absolute Neutrophils 8.75 10^3/uL (1.2-6.7) H 07/21/24 06:31 Absolute Lymphocytes 1.85 10^3/uL (1.2-3.4) 07/21/24 06:31 Absolute Monocytes 0.81 10^3/uL (0.1-0.8) H 07/21/24 06:31 Absolute Eosinophils 0.12 10^3/uL (0.0-0.7) 07/21/24 06:31 Absolute Basophils 0.07 10^3/uL (0.0-0.2) 07/21/24 06:31 PT 9.1 sec (9.1-11.1) 07/20/24 20:00 INR 0.9 (0.9-1.1) 07/20/24 20:00 Sodium 139 mmol/L (136-145) 07/21/24 06:31 Potassium 3.7 mmol/L (3.5-5.1) 07/21/24 06:31 Chloride 107 mmol/L (98-107) 07/21/24 06:31 Carbon Dioxide 25.1 mmol/L (21.0-32.0) 07/21/24 06:31 Anion Gap 6.9 mmol/L (3-11) 07/21/24 06:31 BUN 12 mg/dL (7-18) 07/21/24 06:31 Creatinine 0.8 mg/dL (0.55-1.02) 07/21/24 06:31 Est GFR (CKD-EPI 2020) 104.15 (mL/min/1.73m2) 07/21/24 06:31 Glucose 81 mg/dL (74-106) 07/21/24 06:31 Calcium 9.3 mg/dL (8.5-10.1) 07/21/24 06:31 Magnesium 5.5 mg/dL (1.8-2.4) H* 07/21/24 18:00 Total Bilirubin 0.76 mg/dL (0.2-1.0) 07/21/24 06:31 AST 204 U/L (15-37) H 07/21/24 06:31 ALT 433 U/L (14-59) H 07/21/24 06:31 Alkaline Phosphatase 183 U/L (46-116) H 07/21/24 06:31 Total Protein 6.5 g/dL (6.4-8.2) 07/21/24 06:31 Albumin 2.2 g/dL (3.4-5.0) L 07/21/24 06:31 Vital Signs Reviewed: Yes Subjective Interval history since last seen: Pushing since 1744, descent to +2. Pitocin up to 13mU/min and maternal effort improving. Cat 2 FHT for minimal to moderate variability with accelerations. MD aware of patient status Results Hemoglobin/Hematocrit: Hgb 12.9 g/dL (11.2-15.7) 07/21/24 06:31 Hct 38.2 % (36.0-46.0) 07/21/24 06:31 Abnormal Lab Findings: Abnormal Labs 07/20/24 07/21/24 07/21/24 20:00 06:31 10:55 WBC 11.74 H Hct 34.7 L MPV 11.9 H 11.6 H Absolute Neutrophils 8.75 H Absolute Monocytes 0.81 H Chloride 109 H Anion Gap 11.5 H Calcium 8.4 L Magnesium 6.0 H* AST 210 H 204 H ALT 396 H 433 H Alkaline Phosphatase 164 H 183 H Total Protein 5.9 L Albumin 2.0 L 2.2 L 07/21/24 18:00 WBC Hct MPV Absolute Neutrophils Absolute Monocytes Chloride Anion Gap Calcium Magnesium 5.5 H* AST ALT Alkaline Phosphatase Total Protein Albumin
--- NOTE | 2024-07-21 21:32 | PLAC_PTH ---
PATIENT: Nafisa rGider LOC: OBS U#:[id number] AGE/SX: 28/F ROOM: OBS.303 RE07/20/[address]: Viola Oconnell MD : 1995 BED: A DIS: 07/25/2024 SPEC #: [id number] RECD: 07/22/24 12:49 STATUS: LINO REQ #: [id number] ESTEPHANIA: 07/21/24 21:[address]: Lennie Dutton DEPT: Surgical Specimen RECD BY: Zaida Degroot ENTERED: 07/22/24 12:50 SP TYPE: PLAC OTHR DR: Viola Oconnell MD Tissues: 1 - PLACENTA (3RD TRIMESTER) Procedures: GROSS AND MICRO LEVEL 5 Comments: [id number]
[2024-07-21] MEDS: TRANEXAMIC ACID/SOD. CHL. 1,000 MG/100 ML BAG 600 MG IVPB (21:48)
[2024-07-21] MEDS: Lidocaine 1% Multi-Dose 20 ML VIAL IJ (22:00)
--- NOTE | 2024-07-21 22:17 | W.PM.PROGNOT ---
Date of Service Date of service: 07/21/24 Time of Service: 22:17 Assessment and Plan Assessment and plan (1) Laceration of periurethral tissue with delivery: Status: Acute Assessment and plan: Periurethral laceration repaired with 4-0 Vicryl suture with good cosmetic effect and hemostasis Subjective Subjective Interval history since last seen: Last seen patient ). Due to increased bleeding. She had a normal spontaneous vaginal delivery followed by a hemorrhage which was controlled with oral and rectal misoprostol, IV Pitocin, uterine massage, and 1 g of TXA. She was noted to have a laceration both second-degree perineal, and periurethral which was having ongoing bleeding. Objective Last Vital Signs Temp 98.2 F 07/21/24 18:19 Pulse 82 07/21/24 22:14 Resp 18 07/21/24 15:13 BP 151/82 H 07/21/24 22:14 Pulse Ox 100 07/21/24 17:18 Laboratory Results - last 24 hr 07/21/24 07/21/24 07/21/24 06:31 10:55 18:00 WBC 11.74 H RBC 4.37 Hgb 12.9 Hct 38.2 MCV 87 MCH 29.5 MCHC 33.8 RDW 12.6 Plt Count 203 MPV 11.6 H Immature Gran % 1.2 Neutrophils % 74.5 Lymphocytes % 15.8 Monocytes % 6.9 Eosinophils % 1.0 Basophils % 0.6 Nucleated RBC % 0.0 Absolute Neutrophils 8.75 H Absolute Lymphocytes 1.85 Absolute Monocytes 0.81 H Absolute Eosinophils 0.12 Absolute Basophils 0.07 Sodium 139 Potassium 3.7 Chloride 107 Carbon Dioxide 25.1 Anion Gap 6.9 BUN 12 Creatinine 0.8 Est GFR (CKD-EPI 2020) 104.15 Glucose 81 Calcium 9.3 Magnesium 6.0 H* 5.5 H* Total Bilirubin 0.76 AST 204 H ALT 433 H Alkaline Phosphatase 183 H Total Protein 6.5 Albumin 2.2 L Procedure Procedure and Findings -: Noted there was a periurethral laceration which completely surround of the urethra. Steiner catheter was in situ. Initially a laceration was noted from the superior aspect of the urethra to the periclitoral region. This area was infiltrated with lidocaine, 1% and in a systematic fashion from the urethral opening to the clitoral haines, 4-0 Vicryl suture was used in a running locked fashion to reapproximate the laceration and achieve hemostasis. A second area in the suburethral area was also noted to febrile laceration with modest bleeding. This area was also reapproximated with 4-0 Vicryl suture with 3 simple interrupted stitches. This helped to reapproximate the laceration, and also achieve hemostasis. Patient tolerated the procedure without difficulty. She had appropriate analgesia with both her epidural, and the 1% lidocaine by infiltration Time Spent with Patient Time Spent with Patient: 25-34 minutes Time was spent: preparing to see the patient(eg.review tests), referring, communicating with other health hearing healthcare practitioner and counseling the patient
--- NOTE | 2024-07-21 22:47 | W.OBDELIVERY ---
Date of service: 07/21/24 Time of Service: 22:47 OB Labor/ Delivery Information Baby A Delivery Delivery Method: Spontaneaous Presentation: Vertex Cephalic Position: Vertex Vertex Position: Right Occipital Anterior Cord Description-Baby A: 3 Vessels Amniotic Fluid: [place] Tinged Estimated Blood Loss: 1000 Delivery Outcome: Liveborn Infant Complications: Resuscitation with stimulation and CPAP Infant Transferred: Remains with Mother Providers Doctor: Alma Mccormack Nurse Utilities Estimator And Drafter: Lennie Dutton Banana Expert: Sadie Chavira Nurse: Albaina Barajas Nurse: Lucía Huang Other: Denny Montero Labor/Delivery Information Number of Babies in Womb: 1 Steroids Given: None Reason Steroids Not Administered: N/A Group Beta Strep: Negative Antibiotics Administered: No Rubella Status: Nonimmune Blood Type: O- Varicella Immunity: Nonimmune Maternal Complications: Hemorrhage Shoulder Dystocia: No Stages of Labor Onset of Labor Date: 07/21/24 Onset of Labor Time: 10:17 Complete Dilatation Date: 07/21/24 Complete Dilatation Time: 19:41 Labor - Stage 1 Duration: 9 hours and 24 minutes ROM Baby A: 07/21/24 ROM Baby A: 15:00 ROM Total Time- Baby A: [id number] Delivery Date-Baby A: 07/21/24 Infant Delivery Time-Baby A: 21:21 Labor Stage 2 Duration: 1 hours and 40 minutes Placenta Delivery Date-Baby A: 07/21/24 Placenta Delivery Time-Baby A: 21:32 Labor-Stage 3 Duration: 11 minutes Total Length of Labor-Baby A: 11 hours and 4 minutes Placenta Cultured: No Placenta Status: Delivered Placenta Status: Delivered Baby A Infant Gender: Female Gestational Status: Late (34-36.6 wks) Gestational Age in Weeks/Days: 36 Weeks and 4 Days Score-1 Minute Interval(Baby A) Heart Rate-1 minute: 100 BPM or Greater Respiratory Effort- 1 minute: Slow Respiration/Weak Cry Muscle Tone-1 minute: Minimal Flexion/Extension Reflex Response-1 minute: Prompt Response Color-1 minute: Bluish Hands or Feet Total Score-1 minute: 7 Score-5 Minute Interval(Baby A) Heart Rate- 5 minute: 100 BPM or Greater Respiratory Effort-5 minute: Spontaneous/Strong Cry Muscle Tone-5 minute: Active Movement Reflex Response-5 minute: Prompt Response Color-5 minute: Bluish Hands or Feet Total Score- 5 minute: 9 Note: FHTs 130s during first stage of labor. FHTs 120s in second stage with FSE in place. She progressed to full dilation and began pushing. Second stage huddle was done. Spontaneous delivery of female delivered in MAIA position. Baby was placed on mother's abdomen and dried and stimulated. Weak spontaneous cry with poor tone, cord clamped x 2 and cut by this teletypewriter operator to facilitate transport to warmer for evaluation by Peds. The placenta delivered spontaneously and appears to by intact with a three vessel cord. Pitocin was administered after delivery of the placenta in addition to Misoprostol 800mcg for continuous bleeding. The perineum was inspected and a second degree laceration repaired to approximation and hemostasis. Bleeding periclitoral/periurethral tear repaired by Dr. Mccormack, see separate note. Steiner catheter replaced and Magnesium sulfate infusion continues. The baby did not breastfeed. After delivery, Mother and baby and father of the baby were stable and bonding well in the delivery room and there were no complications. Hemorrrhage Note Note Note: EBL 1000cc due to bleeding lacerations and uterine atony managed with Pitocin, Misoprostol and TXA. Bleeding stabilized after repair and prior to my leaving the patient room Steiner Catheter Urinary Catheter Date of Insertion: 07/21/24 Time of insertion: 21:45 Inserted by: Lennie Dutton
[2024-07-22] VITALS (24 sets, daily range): BP systolic 123–140; BP diastolic 71–88; PULSE 68–97; RESP 12–18; TEMP 36.6–36.8; O2SAT 96–98
[2024-07-22] MEDS: Acetaminophen 325 MG TAB 650 MG PO ×4 (00:14→20:48)
[2024-07-22] MEDS: Ibuprofen 600 MG TAB PO ×4 (00:14→20:48)
[2024-07-22] MEDS: Dibucaine 1% 28 GM TUBE TP ×2 (00:14→19:15)
[2024-07-22] MEDS: Hamamelis Leaf/Glycerin 100 EACH BOX PR ×2 (00:15→19:15)
[2024-07-22 06:51] LABS: Abs Immature Grans 0.13 10^3/uL (0.0-0.06); Absolute Basophil Count 0.05 10^3/uL (0.0-0.2); Absolute Eosinophil Count 0.03 10^3/uL (0.0-0.7); Absolute Lymphocyte Count 1.77 10^3/uL (1.2-3.4); Basophils % 0.3 %; Eosinophils % 0.2 %; HCT 28.2 % (36.0-46.0); HGB 9.7 g/dL (11.2-15.7); Immature Grans % 0.8 %; Lymphocytes % 10.4 %; MCH 29.8 pg (27.0-33.0); MCHC 34.4 % (32.0-36.0); MCV 87 fL (80-95); MPV 11.8 fL (8.0-11.0); Monocytes % 7.7 %; Neutrophils % 80.6 %; Platelet Count 205 10^3/uL (130-400); RBC 3.25 10^6/uL (3.93-5.22); RDW 12.3 % (11.7-14.6); RDW-SD 38.8 fL; WBC 16.98 10^3/uL (4.4-10.8)
--- NOTE | 2024-07-22 06:55 | W.PM.OBPNV1 ---
Date of service: 07/22/24 Time of Service: 06:55 Assessment and Plan Assessment and plan (1) Normal spontaneous vaginal delivery: Status: Acute Assessment and plan: day 1 status postnormal spontaneous vaginal delivery. Induced labor. hemorrhage with uterine atony and perineal and periurethral lacerations. Now stable. Laboratory studies are pending this morning (2) Preeclampsia: Status: Acute (3) HELLP syndrome: Status: Acute (4) Laceration of periurethral tissue with delivery: Status: Acute Subjective Subjective Interval history: Patient seen and examined this morning. Doing well. Pain is well-controlled. Bleeding is appropriate. She has no symptoms of preeclampsia. Vital signs have been stable. Urine output has been approximately 100 cc/h. Labs this morning are pending. Exam Physical Exam Vital signs: Temp Pulse Resp BP Pulse Ox 98.2 F 80 17 135/87 100 07/21/24 18:19 07/22/24 06:14 07/22/24 06:17 07/22/24 06:14 07/21/24 17:18 Vital Signs Reviewed: Yes Constitutional Constitutional: no acute distress HEENT Exam HEENT Exam: Normal Neck Exam Neck Exam: Normal Respiratory Exam Respiratory Exam: Normal Cardiovascular Exam Cardiovascular Exam: Normal Abdominal Exam Comments: Soft, nontender Fundal Exam Fundus: Below Umbilicus and Firm Extremities Exam Extremity Exam: Edema (2+ bilateral lower extremity); negative Calf Tenderness Neurological Exam Neurological Exam: Normal Psychiatric Exam Psychiatric Exam: Normal Results Hemoglobin/Hematocrit: Hgb 12.9 g/dL (11.2-15.7) 07/21/24 06:31 Hct 38.2 % (36.0-46.0) 07/21/24 06:31 Abnormal Lab Findings: Abnormal Labs 07/20/24 07/21/24 07/21/24 20:00 06:31 10:55 WBC 11.74 H Hct 34.7 L MPV 11.9 H 11.6 H Absolute Neutrophils 8.75 H Absolute Monocytes 0.81 H Chloride 109 H Anion Gap 11.5 H Calcium 8.4 L Magnesium 6.0 H* AST 210 H 204 H ALT 396 H 433 H Alkaline Phosphatase 164 H 183 H Total Protein 5.9 L Albumin 2.0 L 2.2 L 07/21/24 07/21/24 18:00 23:58 WBC Hct MPV Absolute Neutrophils Absolute Monocytes Chloride Anion Gap Calcium Magnesium 5.5 H* 5.0 H* AST ALT Alkaline Phosphatase Total Protein Albumin Hemorrrhage Note Steiner Catheter Urinary Catheter Date of Insertion: 07/21/24 Time of insertion: 21:45 Inserted by: Lennie Dutton
[2024-07-22 07:00] LABS: Absolute Monocyte Count 1.31 10^3/uL (0.1-0.8); Absolute Neutrophil Count 13.69 10^3/uL (1.2-6.7)
[2024-07-22 07:23] LABS: ALT 416 U/L (14-59); AST 246 U/L (15-37); Albumin 1.7 g/dL (3.4-5.0); Alkaline Phosphatase 142 U/L (46-116); Anion Gap 7.6 mmol/L (3-11); BUN 14 mg/dL (7-18); Bilirubin, Total 0.84 mg/dL (0.2-1.0); CO2 23.4 mmol/L (21.0-32.0); CREATININE 0.9 mg/dL (0.55-1.02); Calcium 8.1 mg/dL (8.5-10.1); Chloride 103 mmol/L (98-107); Estimated GFR 90.42 (mL/min/1.73m2); Glucose 84 mg/dL (74-106); Potassium 3.4 mmol/L (3.5-5.1); Sodium 134 mmol/L (136-145); Total Protein 5.1 g/dL (6.4-8.2)
[2024-07-22] MEDS: Sertraline 50 MG TAB PO (08:08)
[2024-07-22] MEDS: Lactated Ringers 1,000 ML 200 ML IV (08:08)
[2024-07-22] MEDS: Docusate Sodium 100 MG CAP PO (08:09)
--- NOTE | 2024-07-22 09:53 | W.PM.OBPNV1 ---
Date of service: 07/22/24 Time of Service: 09:53 Assessment and Plan Assessment and plan (1) HELLP syndrome: Status: Acute Assessment and plan: A: Continue Magnesium x 24hrs post delivery (2119) Steiner Catheter in place VSS Anemia 9.7, asymptomatic P: Comanagement with MD. Magnesium level normal. Discontinue MgS04 and possible Steiner catheter this evening Close FU to monitor BPs PP (2) Normal spontaneous vaginal delivery: Status: Acute Assessment and plan: Caring for baby independently. Pain is managed well with oral analgesics. Voiding without difficulty. well. A - stable mother and baby , Post day 1, PPH, late- SGA P - Routine care, reassess tomorrow with possible discharge to rooming in pending status Subjective Subjective Interval history: PP <24 hrs. Parents got a few hours of sleep overnight in between feedings. Using nipple shield and seeing colostrum. Brittany feeding for 30-40minutes. Bleeding slowing, no clots. Bottom is tender and nipples are tender. Pain managed with PO meds. No BM yet. Steiner catheter in place with good urine output. Pt had one severe range pressure after delivery, unsustained and not treated. Vital signs stable overnight. Patient comments: Incisional pain (laceration pain), Tolerating diet and Flatus present Patient's Mood: pleasant [place] baby status: Doing well, Rooming in and Strong Bonding Observed [place] feeding status: Exclusively breast feeding Exam Physical Exam Vital signs: Temp Pulse Resp BP Pulse Ox 98.1 F 68 12 129/83 100 07/22/24 08:10 07/22/24 09:10 07/22/24 08:10 07/22/24 09:10 07/21/24 17:18 Vital Signs Reviewed: Yes Constitutional Constitutional: no acute distress Breast Exam Bilateral: Breast Exam: Soft Nipple Exam: Uninjured and Other (tender) Comments: colostrum present, using nipple shield Respiratory Exam Respiratory Exam: Normal Cardiovascular Exam Cardiovascular Exam: Normal Fundal Exam Fundus: Below Umbilicus and Firm Exam Perineum: Edematous and Repair Intact External: Present normal urethra appearance (Steiner catheter in place), swelling, tenderness and vulvar tenderness Extremities Exam Extremity Exam: Normal Results Hemoglobin/Hematocrit: Hgb 9.7 g/dL (11.2-15.7) L D 07/22/24 06:01 Hct 28.2 % (36.0-46.0) L 07/22/24 06:01 Abnormal Lab Findings: Abnormal Labs 07/20/24 07/21/24 07/21/24 20:00 06:31 10:55 WBC 11.74 H RBC Hgb Hct 34.7 L MPV 11.9 H 11.6 H Absolute Neutrophils 8.75 H Absolute Monocytes 0.81 H Sodium Potassium Chloride 109 H Anion Gap 11.5 H Calcium 8.4 L Magnesium 6.0 H* AST 210 H 204 H ALT 396 H 433 H Alkaline Phosphatase 164 H 183 H Total Protein 5.9 L Albumin 2.0 L 2.2 L 07/21/24 07/21/24 07/22/24 18:00 23:58 06:01 WBC 16.98 H RBC 3.25 L Hgb 9.7 L D Hct 28.2 L MPV 11.8 H Absolute Neutrophils 13.69 H Absolute Monocytes 1.31 H Sodium 134 L Potassium 3.4 L Chloride Anion Gap Calcium 8.1 L Magnesium 5.5 H* 5.0 H* 5.0 H AST 246 H ALT 416 H Alkaline Phosphatase 142 H Total Protein 5.1 L Albumin 1.7 L Hemorrrhage Note Steiner Catheter Urinary Catheter Date of Insertion: 07/21/24 Time of insertion: 21:45 Inserted by: Lennie Dutton
[2024-07-22] MEDS: Measles, Mumps, & Rubella Vaccine 0.5 ML VIAL SC (09:58)
[2024-07-22] MEDS: MAGNESIUM SULFATE 20 GM/500 ML BAG IV_INF (10:56)
[2024-07-22 14:50] LABS: Obstetrics Magnesium 5.1 mg/dL (1.8-2.4)
[2024-07-22] MEDS: Lactated Ringers 1,000 ML 125 ML IV ×2 (15:30→19:35)
[2024-07-22 18:17] LABS: Obstetrics Magnesium 4.3 mg/dL (1.8-2.4)
[2024-07-23] VITALS (11 sets, daily range): BP systolic 122–140; BP diastolic 70–92; PULSE 60–90; RESP 12–18; TEMP 36.4–37.1; O2SAT 97–99
[2024-07-23] MEDS: Lactated Ringers 1,000 ML 125 ML IV (02:30)
[2024-07-23 06:40] LABS: HCT 32.2 % (36.0-46.0); HGB 11.1 g/dL (11.2-15.7); MCH 33.5 pg (27.0-33.0); MCHC 34.5 % (32.0-36.0); MCV 97 fL (80-95); Platelet Count 195 10^3/uL (130-400); RBC 3.31 10^6/uL (3.93-5.22); RDW 13.2 % (11.7-14.6); RDW-SD 46.3 fL; WBC 12.28 10^3/uL (4.4-10.8)
[2024-07-23 07:02] LABS: ALT 24 U/L (14-59); AST 32 U/L (15-37); Albumin 1.8 g/dL (3.4-5.0); Alkaline Phosphatase 513 U/L (46-116); Anion Gap 6.9 mmol/L (3-11); BUN 11 mg/dL (7-18); Bilirubin, Total 0.25 mg/dL (0.2-1.0); CO2 25.1 mmol/L (21.0-32.0); CREATININE 0.7 mg/dL (0.55-1.02); Calcium 8.5 mg/dL (8.5-10.1); Chloride 107 mmol/L (98-107); Estimated GFR 122.25 (mL/min/1.73m2); Glucose 76 mg/dL (74-106); Potassium 4.5 mmol/L (3.5-5.1); Sodium 139 mmol/L (136-145); Total Protein 5.5 g/dL (6.4-8.2)
--- NOTE | 2024-07-23 07:14 | OBPPV_ITS ---
Date of service: 07/23/24 Time of Service: 07:16 Assessment and Plan Assessment and plan (1) Normal spontaneous vaginal delivery: Status: Acute Assessment and plan: A: PPD2, mother VSS Urethral Laceration repair with Buckner in place P: Continue working with on and supplementing with donor milk. Routine teaching (2) Laceration of periurethral tissue with delivery: Status: Acute Assessment and plan: A: Buckner in place, MD to assess P: MD to assess and make plan (3) HELLP syndrome: Status: Acute Subjective Subjective Interval history: Bleeding has increased overnight. 120cc QBL. Patient reports she feels well in her body however her biggest complaint is that she feels so connected to so many things (IV pole, catheter) and has not been up out of bed much. She is working on and awaiting donor breast milk today for supplementation. We made plan to discontinue IV fluids if patient can increase her PO intake and keep urine output around 100cc/hr through Buckner. She will plan to walk on the unit today. Patient comments: Pain well controlled, Flatus present and Other (feels like she is strapped to the bed teary and would like Saline infusion stopped and Buckner catheter out as soon as possible) Patient's Mood: teary, overall pleasant [place] baby status: Doing well and [employer] Observed feeding status: Exclusively breast feeding (planning to supplement with donor milk when available) Exam Physical Exam Vital signs: Temp Pulse Resp BP Pulse Ox 98.2 F 70 18 138/75 98 07/23/24 04:00 07/23/24 04:00 07/23/24 04:00 07/23/24 04:00 07/23/24 04:00 Vital Signs Reviewed: Yes Notable Details: Magnesium discontinued yesterday evening around 2100 Constitutional Constitutional: mild distress Breast Exam Bilateral: Breast Exam: Normal and Soft Nipple Exam: Bruised (bilaterally) Respiratory Exam Respiratory Exam: Normal Cardiovascular Exam Cardiovascular Exam: Normal Fundal Exam Fundus: Below Umbilicus and Firm Exam Perineum: Repair Intact External: Present swelling, lacerations (unable to visualize urethra, lacerations bloody and oozing, buckner catheter in place) and vulvar tenderness Extremities Exam Extremity Exam: Edema (bilaterally to Lower Extremities, non pitting) Neurological Exam Neurological Exam: Normal Psychiatric Exam Psychiatric Exam: Normal Results Hemoglobin/Hematocrit: Hgb 11.1 g/dL (11.2-15.7) L 07/23/24 06:29 Hct 32.2 % (36.0-46.0) L 07/23/24 06:29 Abnormal Lab Findings: Abnormal Labs 07/20/24 07/21/24 07/21/24 20:00 06:31 10:55 WBC 11.74 H RBC Hgb Hct 34.7 L MCV MCH MPV 11.9 H 11.6 H Absolute Neutrophils 8.75 H Absolute Monocytes 0.81 H Sodium Potassium Chloride 109 H Anion Gap 11.5 H Calcium 8.4 L Magnesium 6.0 H* AST 210 H 204 H ALT 396 H 433 H Alkaline Phosphatase 164 H 183 H Total Protein 5.9 L Albumin 2.0 L 2.2 L 07/21/24 07/21/24 07/22/24 18:00 23:58 06:01 WBC 16.98 H RBC 3.25 L Hgb 9.7 L D Hct 28.2 L MCV MCH MPV 11.8 H Absolute Neutrophils 13.69 H Absolute Monocytes 1.31 H Sodium 134 L Potassium 3.4 L Chloride Anion Gap Calcium 8.1 L Magnesium 5.5 H* 5.0 H* 5.0 H AST 246 H ALT 416 H Alkaline Phosphatase 142 H Total Protein 5.1 L Albumin 1.7 L 07/22/24 07/22/24 07/23/24 11:58 17:51 06:29 WBC 12.28 H RBC 3.31 L Hgb 11.1 L Hct 32.2 L MCV 97 H D MCH 33.5 H MPV 12.0 H Absolute Neutrophils Absolute Monocytes Sodium Potassium Chloride Anion Gap Calcium Magnesium 5.1 H 4.3 H AST ALT Alkaline Phosphatase 513 H Total Protein 5.5 L Albumin 1.8 L Additional Findings Results: CBC re-ordered as levels went up from 9.7 yesterday to 11.1 today Hemorrrhage Note Buckner Catheter Urinary Catheter Date of Insertion: 07/21/24 Time of insertion: 21:45 Inserted by: Lennie Dutton
[2024-07-23 07:24] LABS: HGB 7.7 g/dL (11.2-15.7); MCHC 33.5 % (32.0-36.0); MCV 90 fL (80-95); Platelet Count 188 10^3/uL (130-400); RBC 2.57 10^6/uL (3.93-5.22); RDW 12.9 % (11.7-14.6); RDW-SD 41.6 fL; WBC 11.47 10^3/uL (4.4-10.8)
[2024-07-23] MEDS: Acetaminophen 325 MG TAB 650 MG PO ×3 (07:37→19:36)
[2024-07-23] MEDS: Ibuprofen 600 MG TAB PO ×3 (07:38→19:36)
[2024-07-23] MEDS: Docusate Sodium 100 MG CAP PO (07:38)
[2024-07-23] MEDS: Sertraline 50 MG TAB PO (07:38)
--- NOTE | 2024-07-23 09:00 | W.ANESPOSTOP ---
Postoperative Evaluation Date, Time and Location Date Performed: 07/23/24 Time Performed: 09:00 Patient Location: Obstetrics Vital Signs Most Recent Imported Vital Signs: Most Recent Vital Signs Temp Pulse Resp BP Pulse Ox 36.8 C 70 18 138/75 98 07/23/24 04:00 07/23/24 04:00 07/23/24 04:00 07/23/24 04:00 07/23/24 04:00 Pain Score Most Recent Pain Score: Most Recent Pain Score Pain Level 3 07/23/24 07:38 Assessment Mental Status: Awake (Alert & Oriented to Patient Baseline) Airway and Respiratory Function: Patent airway with normal (patient baseline) respiratory exam Cardiovascular Function: Hemodynamically Stable Hydration Status: Adequately Hydrated Nausea & Vomiting: No Nausea or Vomiting Pain: Pain is tolerable per patient Peripheral Nerve Block: Patient did not receive a nerve block Postoperative Comments:: Significant perineum laceration during . Repaired. Pt states that she could not feel repair with Epidural running. Stephani Smith, STACKER OPERATOR
[2024-07-23 09:12] LABS: ALT 292 U/L (14-59); AST 131 U/L (15-37); Albumin 1.7 g/dL (3.4-5.0); Alkaline Phosphatase 127 U/L (46-116); Anion Gap 4.7 mmol/L (3-11); BUN 12 mg/dL (7-18); Bilirubin, Total 0.39 mg/dL (0.2-1.0); CO2 27.3 mmol/L (21.0-32.0); CREATININE 0.8 mg/dL (0.55-1.02); Calcium 7.8 mg/dL (8.5-10.1); Chloride 106 mmol/L (98-107); Estimated GFR 104.15 (mL/min/1.73m2); Glucose 83 mg/dL (74-106); Potassium 3.9 mmol/L (3.5-5.1); Sodium 138 mmol/L (136-145); Total Protein 4.8 g/dL (6.4-8.2)
[2024-07-23] MEDS: Lidocaine 1.5 % Pres-Free W/EPI 1/200,000 30 ML VIAL (12:00)
[2024-07-23] MEDS: Lidocaine 2% Jelly 6 ML SYR (12:01)
--- NOTE | 2024-07-23 13:02 | OBPPV_ITS ---
Date of service: 07/23/24 Time of Service: 11:30 Assessment and Plan Assessment and plan (1) Laceration of periurethral tissue with delivery: Status: Acute Assessment and plan: Upper end of laceration reinforced with one figure of 8 suture with good hemostasis resulting. Will continue to monitor. (2) HELLP syndrome: Status: Acute Assessment and plan: Mag turned off last night with good diuresis overnight and BPs stable around 130s/80s. LFTs decreased a bit today. Will repeat again tomorrow. (3) hemorrhage, delivered: Status: Acute Assessment and plan: Pt currently asymptomatic but will consider possible blood transfusion vs iron infusion due to Hb 7.7. Subjective Subjective Narrative: Pt continuing to have significant bleeding, needing to change her pad every hour or so and it appears to be coming from the periurethral/clitoral repair. She denies significant pain there. She is feeling pretty depressed about everything going on and feeling like she can't move around to care for her baby since she is hooked up to some many thing s. She is taking in adequate PO without n/v. Exam Physical Exam Vital signs: Temp Pulse Resp BP Pulse Ox 97.5 F L 72 12 139/84 98 07/23/24 07:40 07/23/24 07:40 07/23/24 07:40 07/23/24 07:40 07/23/24 04:00 Vital Signs Reviewed: Yes Constitutional Constitutional: no acute distress and cooperative Detailed HEENT Exam Head: Present normocephalic and atraumatic Respiratory Exam Respiratory Exam: Normal Exam Comments: On inspection of the vulva there was a continuous trickle of blood from the upper aspect of the repair between the urethra and the clitoris. This area was clensed with betadyne, covered with lidocaine gel and then injected with 1% lidocaine with epinephrine. A figure of 8 suture of 4-0 vicryl was placed at the upper end of the tear right at the bottom edge of the clitoris. This achieved good hemostasis. No significant bleeding was noted from the vaginal repair. Detailed Neurological Exam Neurological: Present alert, oriented X3 and CN II-XII intact Results Hemoglobin/Hematocrit: Hgb 7.7 g/dL (11.2-15.7) L D 07/23/24 07:15 Hct 23.0 % (36.0-46.0) L 07/23/24 07:15 Abnormal Lab Findings: Abnormal Labs 07/20/24 07/21/24 07/21/24 20:00 06:31 10:55 WBC 11.74 H RBC Hgb Hct 34.7 L MCV MCH MPV 11.9 H 11.6 H Absolute Neutrophils 8.75 H Absolute Monocytes 0.81 H Sodium Potassium Chloride 109 H Anion Gap 11.5 H Calcium 8.4 L Magnesium 6.0 H* AST 210 H 204 H ALT 396 H 433 H Alkaline Phosphatase 164 H 183 H Total Protein 5.9 L Albumin 2.0 L 2.2 L Crossmatch 07/21/24 07/21/24 07/22/24 18:00 23:58 06:01 WBC 16.98 H RBC 3.25 L Hgb 9.7 L D Hct 28.2 L MCV MCH MPV 11.8 H Absolute Neutrophils 13.69 H Absolute Monocytes 1.31 H Sodium 134 L Potassium 3.4 L Chloride Anion Gap Calcium 8.1 L Magnesium 5.5 H* 5.0 H* 5.0 H AST 246 H ALT 416 H Alkaline Phosphatase 142 H Total Protein 5.1 L Albumin 1.7 L Crossmatch 07/22/24 07/22/24 07/23/24 11:58 17:51 06:29 WBC 12.28 H RBC 3.31 L Hgb 11.1 L Hct 32.2 L MCV 97 H D MCH 33.5 H MPV 12.0 H Absolute Neutrophils Absolute Monocytes Sodium Potassium Chloride Anion Gap Calcium Magnesium 5.1 H 4.3 H AST ALT Alkaline Phosphatase 513 H Total Protein 5.5 L Albumin 1.8 L Crossmatch 07/23/24 07/23/24 07/23/24 07:15 08:43 12:54 WBC 11.47 H RBC 2.57 L Hgb 7.7 L D Hct 23.0 L MCV MCH MPV Absolute Neutrophils Absolute Monocytes Sodium Potassium Chloride Anion Gap Calcium 7.8 L Magnesium AST 131 H ALT 292 H Alkaline Phosphatase 127 H Total Protein 4.8 L Albumin 1.7 L Crossmatch See Detail Hemorrrhage Note Steiner Catheter Urinary Catheter Date of Insertion: 07/21/24 Time of insertion: 21:45 Inserted by: Lennie Dutton
--- NOTE | 2024-07-23 13:06 | W.PM.OBPNV1 ---
Date of service: 07/23/24 Time of Service: 13:06 Assessment and Plan Assessment and plan (1) hemorrhage, delivered: Status: Acute Assessment and plan: A: Severe anemia P: [place] 1 unit PRBC's. Subjective Subjective Interval history: Hgb dropped from 9.1 to 7.7 overnight, bleeding laceration repaired this morning by Dr. Oconnell. Recommended blood transfusion for symptomatic relief of anemia. Reviewed risks and benefits. Patient agrees to transfusion. Patient's Mood: tired baby status: Doing well feeding status: Exclusively breast feeding Exam Physical Exam Vital signs: Temp Pulse Resp BP Pulse Ox 97.5 F L 72 12 139/84 98 07/23/24 07:40 07/23/24 07:40 07/23/24 07:40 07/23/24 07:40 07/23/24 04:00 Constitutional Constitutional: no acute distress (pale) Results Hemoglobin/Hematocrit: Hgb 7.7 g/dL (11.2-15.7) L D 07/23/24 07:15 Hct 23.0 % (36.0-46.0) L 07/23/24 07:15 Abnormal Lab Findings: Abnormal Labs 07/20/24 07/21/24 07/21/24 20:00 06:31 10:55 WBC 11.74 H RBC Hgb Hct 34.7 L MCV MCH MPV 11.9 H 11.6 H Absolute Neutrophils 8.75 H Absolute Monocytes 0.81 H Sodium Potassium Chloride 109 H Anion Gap 11.5 H Calcium 8.4 L Magnesium 6.0 H* AST 210 H 204 H ALT 396 H 433 H Alkaline Phosphatase 164 H 183 H Total Protein 5.9 L Albumin 2.0 L 2.2 L Crossmatch 07/21/24 07/21/24 07/22/24 18:00 23:58 06:01 WBC 16.98 H RBC 3.25 L Hgb 9.7 L D Hct 28.2 L MCV MCH MPV 11.8 H Absolute Neutrophils 13.69 H Absolute Monocytes 1.31 H Sodium 134 L Potassium 3.4 L Chloride Anion Gap Calcium 8.1 L Magnesium 5.5 H* 5.0 H* 5.0 H AST 246 H ALT 416 H Alkaline Phosphatase 142 H Total Protein 5.1 L Albumin 1.7 L Crossmatch 02/07/22/24 07/23/24 11:58 17:51 06:29 WBC 12.28 H RBC 3.31 L Hgb 11.1 L Hct 32.2 L MCV 97 H D MCH 33.5 H MPV 12.0 H Absolute Neutrophils Absolute Monocytes Sodium Potassium Chloride Anion Gap Calcium Magnesium 5.1 H 4.3 H AST ALT Alkaline Phosphatase 513 H Total Protein 5.5 L Albumin 1.8 L Crossmatch 07/23/24 07/23/24 07/23/24 07:15 08:43 12:54 WBC 11.47 H RBC 2.57 L Hgb 7.7 L D Hct 23.0 L MCV MCH MPV Absolute Neutrophils Absolute Monocytes Sodium Potassium Chloride Anion Gap Calcium 7.8 L Magnesium AST 131 H ALT 292 H Alkaline Phosphatase 127 H Total Protein 4.8 L Albumin 1.7 L Crossmatch See Detail Hemorrrhage Note Steiner Catheter Urinary Catheter Date of Insertion: 07/21/24 Time of insertion: 21:45 Inserted by: Lennie Dutton
[2024-07-23] MEDS: Dibucaine 1% 28 GM TUBE TP (19:37)
[2024-07-23] MEDS: Normal Saline Flush 10 ML SYR IVP (22:12)
[2024-07-24] MEDS: Ibuprofen 600 MG TAB PO ×3 (03:43→21:35)
[2024-07-24] MEDS: Acetaminophen 325 MG TAB 650 MG PO ×3 (03:43→21:35)
[2024-07-24] MEDS: Docusate Sodium 100 MG CAP PO ×3 (03:43→21:35)
[2024-07-24 06:49] LABS: HCT 22.3 % (36.0-46.0); HGB 7.5 g/dL (11.2-15.7); MCH 29.3 pg (27.0-33.0); MCHC 33.6 % (32.0-36.0); MCV 87 fL (80-95); Platelet Count 206 10^3/uL (130-400); RBC 2.56 10^6/uL (3.93-5.22); RDW 13.8 % (11.7-14.6); RDW-SD 43.1 fL; WBC 11.42 10^3/uL (4.4-10.8)
[2024-07-24 07:09] LABS: ALT 267 U/L (14-59); AST 131 U/L (15-37); Albumin 1.7 g/dL (3.4-5.0); Alkaline Phosphatase 122 U/L (46-116); Anion Gap 7.2 mmol/L (3-11); BUN 7 mg/dL (7-18); Bilirubin, Total 0.38 mg/dL (0.2-1.0); CO2 26.8 mmol/L (21.0-32.0); CREATININE 0.7 mg/dL (0.55-1.02); Calcium 8.2 mg/dL (8.5-10.1); Chloride 109 mmol/L (98-107); Estimated GFR 122.25 (mL/min/1.73m2); Glucose 83 mg/dL (74-106); Potassium 4.2 mmol/L (3.5-5.1); Sodium 143 mmol/L (136-145); Total Protein 4.8 g/dL (6.4-8.2)
[2024-07-24 08:07] VITALS: BP 133/89; PULSE 73; RESP 12; TEMP 37.2
[2024-07-24] MEDS: Sertraline 50 MG TAB PO (08:18)
--- NOTE | 2024-07-24 09:13 | W.PM.OBPNV1 ---
Date of service: 07/24/24 Time of Service: 09:13 Assessment and Plan Assessment and plan (1) HELLP syndrome: Status: Acute Assessment and plan: Slow downward trend of liver enzymes. Will repeat CMP in the morning. (2) Laceration of periurethral tissue with delivery: Status: Acute (3) hemorrhage, delivered: Status: Acute Assessment and plan: Patient has persistently low hemoglobin today at 7.5. Will transfuse packed red blood cells today, minimum of 1 unit, possibly 2. Monitor her area of bleeding. May need to go to the OR for exam under anesthesia with repair. At this point, Steiner catheter is out. Will monitor ability to urinate. Subjective Subjective Interval history: Patient seen and examined this morning. Feeling better after 1 unit of packed red blood cells, however hemoglobin this morning is still low at 7.5. On examination, she still has a small but persistent trickle of blood from the periurethral area. We discussed repeat transfusion of minimum of 1, possibly 2 units of packed red blood cells. Steiner catheter has been bothersome to her and quite painful. This also may be irritating the area and causing ongoing traumatic bleeding. Steiner catheter was removed this morning. Careful attention will be placed to amount of bleeding from the periurethral area over the course of the next few hours. If she continues to have bleeding, exam under anesthesia and appropriate repair may be warranted. Patient is very comfortable with this. Otherwise, she is feeling well. She wishes to be up and showering. Her appetite is appropriate. Her vital signs are stable. Her blood pressure is in the relatively normal range in the 130s to 140s over 80s to 90s. Overall she is doing well. baby status: Doing well and Nursing well Exam Physical Exam Vital signs: Temp Pulse Resp BP Pulse Ox 99.0 F 73 12 133/89 99 07/24/24 08:07 07/24/24 08:07 07/24/24 08:07 07/24/24 08:07 07/23/24 21:49 Vital Signs Reviewed: Yes Constitutional Constitutional: no acute distress HEENT Exam HEENT Exam: Normal Neck Exam Neck Exam: Normal Respiratory Exam Respiratory Exam: Normal Cardiovascular Exam Cardiovascular Exam: Normal Abdominal Exam Abdomen: Tender Fundal Exam Fundus: Below Umbilicus and Firm Extremities Exam Extremity Exam: Normal and Edema (1+ bilateral); negative Calf Tenderness Skin Exam Skin Exam: Normal Neurological Exam Neurological Exam: Normal Psychiatric Exam Psychiatric Exam: Normal Results Hemoglobin/Hematocrit: Hgb 7.5 g/dL (11.2-15.7) L 07/24/24 06:04 Hct 22.3 % (36.0-46.0) L 07/24/24 06:04 Abnormal Lab Findings: Abnormal Labs 07/20/24 07/21/24 07/21/24 20:00 06:31 10:55 WBC 11.74 H RBC Hgb Hct 34.7 L MCV MCH MPV 11.9 H 11.6 H Absolute Neutrophils 8.75 H Absolute Monocytes 0.81 H Sodium Potassium Chloride 109 H Anion Gap 11.5 H Calcium 8.4 L Magnesium 6.0 H* AST 210 H 204 H ALT 396 H 433 H Alkaline Phosphatase 164 H 183 H Total Protein 5.9 L Albumin 2.0 L 2.2 L Crossmatch 07/21/24 07/21/24 07/22/24 18:00 23:58 06:01 WBC 16.98 H RBC 3.25 L Hgb 9.7 L D Hct 28.2 L MCV MCH MPV 11.8 H Absolute Neutrophils 13.69 H Absolute Monocytes 1.31 H Sodium 134 L Potassium 3.4 L Chloride Anion Gap Calcium 8.1 L Magnesium 5.5 H* 5.0 H* 5.0 H AST 246 H ALT 416 H Alkaline Phosphatase 142 H Total Protein 5.1 L Albumin 1.7 L Crossmatch 07/22/24 07/22/24 07/23/24 11:58 17:51 06:29 WBC 12.28 H RBC 3.31 L Hgb 11.1 L Hct 32.2 L MCV 97 H D MCH 33.5 H MPV 12.0 H Absolute Neutrophils Absolute Monocytes Sodium Potassium Chloride Anion Gap Calcium Magnesium 5.1 H 4.3 H AST ALT Alkaline Phosphatase 513 H Total Protein 5.5 L Albumin 1.8 L Crossmatch 07/23/24 07/23/24 07/23/24 07:15 08:43 14:58 WBC 11.47 H RBC 2.57 L Hgb 7.7 L D Hct 23.0 L MCV MCH MPV Absolute Neutrophils Absolute Monocytes Sodium Potassium Chloride Anion Gap Calcium 7.8 L Magnesium AST 131 H ALT 292 H Alkaline Phosphatase 127 H Total Protein 4.8 L Albumin 1.7 L Crossmatch See Detail 07/24/24 07/24/24 06:04 06:13 WBC 11.42 H RBC 2.56 L Hgb 7.5 L Hct 22.3 L MCV MCH MPV Absolute Neutrophils Absolute Monocytes Sodium Potassium Chloride 109 H Anion Gap Calcium 8.2 L Magnesium AST 131 H ALT 267 H Alkaline Phosphatase 122 H Total Protein 4.8 L Albumin 1.7 L Crossmatch Hemorrrhage Note Steiner Catheter Urinary Catheter Date of Insertion: 07/21/24 Time of insertion: 21:45 Inserted by: Lennie Dutton
[2024-07-24 10:44] VITALS: BP 137/77; PULSE 71; RESP 14; TEMP 37.1; O2SAT 988
[2024-07-24 10:59] VITALS: BP 125/79; PULSE 69; RESP 12; TEMP 37.1; O2SAT 100
[2024-07-24 11:29] VITALS: BP 130/80; PULSE 83; RESP 12; TEMP 37.1; O2SAT 100
[2024-07-24] MEDS: Normal Saline Flush 10 ML SYR IVP ×2 (12:58→21:35)
[2024-07-24 14:00] LABS: Abs Immature Grans 0.26 10^3/uL (0.0-0.06); Absolute Basophil Count 0.08 10^3/uL (0.0-0.2); Absolute Eosinophil Count 0.21 10^3/uL (0.0-0.7); Absolute Lymphocyte Count 1.88 10^3/uL (1.2-3.4); Absolute Monocyte Count 0.75 10^3/uL (0.1-0.8); Basophils % 0.6 %; Eosinophils % 1.5 %; HGB 9.4 g/dL (11.2-15.7); Immature Grans % 1.9 %; Lymphocytes % 13.5 %; MCH 29.2 pg (27.0-33.0); MCHC 33.6 % (32.0-36.0); MCV 87 fL (80-95); MPV 10.6 fL (8.0-11.0); Monocytes % 5.4 %; Neutrophils % 77.1 %; Platelet Count 258 10^3/uL (130-400); RBC 3.22 10^6/uL (3.93-5.22); RDW 13.8 % (11.7-14.6); RDW-SD 42.5 fL; WBC 13.94 10^3/uL (4.4-10.8)
[2024-07-24 14:21] LABS: Absolute Neutrophil Count 10.75 10^3/uL (1.2-6.7)
[2024-07-24 16:20] VITALS: BP 133/77; PULSE 89; RESP 18; TEMP 37.1; O2SAT 98
--- NOTE | 2024-07-24 17:16 | CMPROGNOTE_ITS ---
Date of service: 07/24/24 Time of Service: 17:16 Care Management Progress Note Progress Note Text Progress Note Text: CM was asked to support home health orders for Nafisa upon discharge for blood pressure monitoring due to preeclampsia. CM contacted [facility], who reported that she is eligible for halfway for this. CM contacted [facility] regarding [facility] [place], who provides maternal/child home nursing , and covers [facility] for this service only. Separate referrals will need to be made for HH RN through [facility] and [facility]. CM will send the [facility] referral on day of discharge. OB staff will send the referral to [facility] for the maternal/child home nursing program, if indicated. CM will continue to follow. Social Determinants of Health Screening Social Determinants of Health last assessed: 07/24/24 Will the Patient Participate in the Screening?: Yes Do you worry about having a steady place to live?: no Problems where you live: no known problems In the past 12 months, have you had to go without electric, gas, oil or water in your home?: no Have you or anyone in your house had to go without enough food to eat?: no Has lack of transportation kept you from medical appointments or from doing things needed for daily living?: no Has anyone in your life made you feel unsafe or unsupported?: no How hard is it for you to pay for the very basics like food, housing, medical care, and heating? Would you say it is:: Not hard at all Do you want help finding or keeping work or a job?: I do not need or want help If for any reason you need help with day-to-day activities such as bathing, preparing meals, shopping, managing finances, etc., do you get the help you need?: I don?t need any help How often do you feel lonely or isolated from those around you?: Never Do you speak a language other than [place]ive[place] at home?: No Does the patient want assistance with any of the above?: No
[2024-07-24 19:59] VITALS: BP 132/91; PULSE 84; RESP 18; TEMP 36.7; O2SAT 100
[2024-07-25] MEDS: Acetaminophen 325 MG TAB 650 MG PO ×2 (04:30→11:45)
[2024-07-25] MEDS: Ibuprofen 600 MG TAB PO ×2 (04:30→11:45)
[2024-07-25 07:02] LABS: Abs Immature Grans 0.32 10^3/uL (0.0-0.06); Absolute Basophil Count 0.04 10^3/uL (0.0-0.2); Absolute Eosinophil Count 0.27 10^3/uL (0.0-0.7); Absolute Lymphocyte Count 2.39 10^3/uL (1.2-3.4); Basophils % 0.3 %; Eosinophils % 2.3 %; HCT 27.3 % (36.0-46.0); HGB 9.1 g/dL (11.2-15.7); Immature Grans % 2.7 %; Lymphocytes % 20.2 %; MCH 29.6 pg (27.0-33.0); MCHC 33.3 % (32.0-36.0); MCV 89 fL (80-95); MPV 10.4 fL (8.0-11.0); Monocytes % 5.7 %; Neutrophils % 68.8 %; Nucleated RBC 0.3 % (0.0-0.3); Platelet Count 275 10^3/uL (130-400); RBC 3.07 10^6/uL (3.93-5.22); RDW 14.2 % (11.7-14.6); RDW-SD 45.1 fL; WBC 11.85 10^3/uL (4.4-10.8)
[2024-07-25 07:08] LABS: Absolute Monocyte Count 0.68 10^3/uL (0.1-0.8); Absolute Neutrophil Count 8.15 10^3/uL (1.2-6.7)
[2024-07-25 07:45] VITALS: BP 128/80; PULSE 70; RESP 16; TEMP 36.8; O2SAT 98
[2024-07-25 08:29] LABS: ALT 300 U/L (14-59); AST 129 U/L (15-37); Albumin 2.1 g/dL (3.4-5.0); Alkaline Phosphatase 142 U/L (46-116); Anion Gap 7.4 mmol/L (3-11); BUN 10 mg/dL (7-18); Bilirubin, Total 0.38 mg/dL (0.2-1.0); CO2 25.6 mmol/L (21.0-32.0); CREATININE 0.7 mg/dL (0.55-1.02); Calcium 8.6 mg/dL (8.5-10.1); Chloride 110 mmol/L (98-107); Estimated GFR 122.25 (mL/min/1.73m2); Glucose 80 mg/dL (74-106); Potassium 3.7 mmol/L (3.5-5.1); Sodium 143 mmol/L (136-145); Total Protein 5.8 g/dL (6.4-8.2)
[2024-07-25] MEDS: Sertraline 50 MG TAB PO (08:30)
[2024-07-25] MEDS: Docusate Sodium 100 MG CAP PO (08:30)
--- NOTE | 2024-07-25 10:03 | OBPPV_ITS ---
Date of service: 07/25/24 Time of Service: 10:03 Assessment and Plan Assessment and plan (1) hemorrhage, delivered: Status: Acute Assessment and plan: day 3 status post vaginal with hemorrhage. She also had a significant periurethral laceration which was repaired. She had a hemoglobin kalia in the sevens and received a total of 2 units of packed red blood cells. Hemoglobin stable in the 9 range today. Vital signs are stable. She did have preeclampsia with severe features and help syndrome which was somewhat atypical. Her liver enzymes continue to slowly trend downward. We had a conversation today regarding ongoing management. If her liver enzymes do not return to normal by the 6-week period, further evaluation via primary care would be warranted. All questions were answered. (2) Laceration of periurethral tissue with delivery: Status: Acute (3) HELLP syndrome: Status: Acute Exam Physical Exam Vital signs: Temp Pulse Resp BP Pulse Ox 98.2 F 70 16 128/80 98 07/25/24 07:45 07/25/24 07:45 07/25/24 07:45 07/25/24 07:45 07/25/24 07:45 Vital Signs Reviewed: Yes Narrative: Patient seen and examined this morning. Doing well. Somewhat emotional due to the fact that the baby is under the bili lights. We had a lengthy conversation regarding both the patient and her baby's aftercare. Overall they are doing very well. Will discharge home or to [facility] status tonight. HEENT Exam HEENT Exam: Normal Neck Exam Neck Exam: Normal Respiratory Exam Respiratory Exam: Normal Abdominal Exam Comments: Soft and nontender Fundal Exam Fundus: Below Umbilicus and Firm Extremities Exam Extremity Exam: Normal and Edema (1+ bilateral); negative Calf Tenderness Skin Exam Skin Exam: Normal Results Hemoglobin/Hematocrit: Hgb 9.1 g/dL (11.2-15.7) L 07/25/24 06:12 Hct 27.3 % (36.0-46.0) L 07/25/24 06:12 Abnormal Lab Findings: Abnormal Labs 07/20/24 07/21/24 07/21/24 20:00 06:31 10:55 WBC 11.74 H RBC Hgb Hct 34.7 L MCV MCH MPV 11.9 H 11.6 H Absolute Neutrophils 8.75 H Absolute Monocytes 0.81 H Sodium Potassium Chloride 109 H Anion Gap 11.5 H Calcium 8.4 L Magnesium 6.0 H* AST 210 H 204 H ALT 396 H 433 H Alkaline Phosphatase 164 H 183 H Total Protein 5.9 L Albumin 2.0 L 2.2 L Crossmatch 07/21/24 07/21/24 07/22/24 18:00 23:58 06:01 WBC 16.98 H RBC 3.25 L Hgb 9.7 L D Hct 28.2 L MCV MCH MPV 11.8 H Absolute Neutrophils 13.69 H Absolute Monocytes 1.31 H Sodium 134 L Potassium 3.4 L Chloride Anion Gap Calcium 8.1 L Magnesium 5.5 H* 5.0 H* 5.0 H AST 246 H ALT 416 H Alkaline Phosphatase 142 H Total Protein 5.1 L Albumin 1.7 L Crossmatch 07/22/24 07/22/24 07/23/24 11:58 17:51 06:29 WBC 12.28 H RBC 3.31 L Hgb 11.1 L Hct 32.2 L MCV 97 H D MCH 33.5 H MPV 12.0 H Absolute Neutrophils Absolute Monocytes Sodium Potassium Chloride Anion Gap Calcium Magnesium 5.1 H 4.3 H AST ALT Alkaline Phosphatase 513 H Total Protein 5.5 L Albumin 1.8 L Crossmatch 07/23/24 07/23/24 07/23/24 07:15 08:43 14:58 WBC 11.47 H RBC 2.57 L Hgb 7.7 L D Hct 23.0 L MCV MCH MPV Absolute Neutrophils Absolute Monocytes Sodium Potassium Chloride Anion Gap Calcium 7.8 L Magnesium AST 131 H ALT 292 H Alkaline Phosphatase 127 H Total Protein 4.8 L Albumin 1.7 L Crossmatch See Detail 07/24/24 07/24/24 07/24/24 06:04 06:13 13:54 WBC 11.42 H 13.94 H RBC 2.56 L 3.22 L Hgb 7.5 L 9.4 L Hct 22.3 L 28.0 L MCV MCH MPV Absolute Neutrophils 10.75 H Absolute Monocytes Sodium Potassium Chloride 109 H Anion Gap Calcium 8.2 L Magnesium AST 131 H ALT 267 H Alkaline Phosphatase 122 H Total Protein 4.8 L Albumin 1.7 L Crossmatch 07/25/24 06:12 WBC 11.85 H RBC 3.07 L Hgb 9.1 L Hct 27.3 L MCV MCH MPV Absolute Neutrophils 8.15 H Absolute Monocytes Sodium Potassium Chloride 110 H Anion Gap Calcium Magnesium AST 129 H ALT 300 H Alkaline Phosphatase 142 H Total Protein 5.8 L Albumin 2.1 L Crossmatch Hemorrrhage Note Steiner Catheter Urinary Catheter Date of Insertion: 07/21/24 Time of insertion: 21:45 Inserted by: Lennie Dutton
--- NOTE | 2024-07-25 10:12 | W.PM.OBDISCH ---
Date of service: 07/25/24 Time of Service: 10:12 DS: Diagnosis Discharge Diagnosis (1) hemorrhage, delivered: Status: Acute Asessment and Plan: Patient is day 3 status post vaginal with hemorrhage and periurethral laceration. She received total of 2 units of packed red blood cells and remains with a hemoglobin that is stable at 9.1. Her was complicated by preeclampsia with atypical help syndrome. Her liver enzymes remain elevated, however are slowly trending downward. She is scheduled to have a repeat CBC and CMP as an outpatient day of visit. She will be seen back in the office on 07/29/2024. All of her questions were answered discharge instructions were given. (2) Laceration of periurethral tissue with delivery: Status: Acute (3) HELLP syndrome: Status: Acute Discharge Plan Disposition Patient Disposition: Home Condition: Good Discharge Details Reason For Visit: atypical preeclampsia Admit Date/Time: 07/20/24 18:20 Admit Provider: Viola Oconnell Attending Provider: Viola Oconnell Primary Care Provider: Unknown,Unknown Hospital Course Hospital Course: Patient was admitted to the center on 07/20/2024. She had a known diagnosis of elevated liver enzymes and developed preeclampsia superimposed. She did have occasional severe features and required magnesium sulfate for seizure prophylaxis. After receiving misoprostol and Pitocin augmentation, she went on to have a vaginal of a viable female named kenn. At time of delivery, she did have a hemorrhage that was greater than 1000 cc. This responded to Pitocin, fundal massage, misoprostol. She also had a fairly extensive periurethral laceration which was repaired, along with a perineal laceration. day #1, she did have a hemoglobin kalia of 7.2. She received 1 unit of packed red blood cells. On day 1, she was noted to have a continued trickle from the periurethral area which was oversewn with a single stitch. day 2, Steiner catheter was removed. Her magnesium sulfate had been discontinued. Her bleeding remained stable and hemoglobin was stable after a second unit of packed red blood cells. She is discharged to home day 3 with stable vital signs, ambulating, tolerating regular diet and oral pain medication. She will be seen in the office in short interval follow-up. She will also have laboratory studies as an outpatient. Home Meds and New Rx's Prescriptions: New ibuprofen 800 mg tablet 800 mg PO Q8H PRNQty: 60 0RF docusate sodium [Colace] 100 mg capsule 100 mg PO BID Qty: 30 0RF No Action Classic 28 mg iron- 800 mcg tablet 1 tab PO DAILY sertraline 50 mg tablet 50 mg PO DAILY Discharge Instructions Additional Instructions: Follow-up in women's wellness 07/29/2024 Stand Alone Forms: BC Discharge Instruc, BC Post Vaginal Deliver Activity:: Activity as Tolerated Equipment/Supplies:: No Equipment Needed Diet:: As Tolerated Discharge Orders Other Ambulatory Orders: Complete Blood Count w/Diff (Routine) Timeframe: 20240729 Facility: [facility] - Location: Laboratory Outpatient - [facility] Ordered By: Alma Mccormack Comprehensive Metabolic Panel (Routine) Timeframe: 20240729 Facility: [facility] - Location: Laboratory Outpatient - [facility] Ordered By: Alma Mccormack Discharge Data Discharge Date/Time-TO BE ENTERED AT DEPARTURE: 07/25/24 10:12 OB:DS Summary Summary Vaginal Delivery Method: Spontaneaous Episiotomy Description: None Laceration Extension: Second Degree Contraception Discussed Contraception Discussed: Yes, [place] Gender-Baby A: Female weight: 5 lb 8.89 oz Status at Discharge Functional status at discharge: independent ambulation Overall status at discharge: patient is progressing back to baseline Mental Status: mental status grossly normal Speech and Movement: speech and movement normal Mood: congruent mood Affect: normal affect Quality:SDOH Health Related Social Needs: No Data to Display Exam Physical Exam Vital signs: Temp Pulse Resp BP Pulse Ox 98.2 F 70 16 128/80 98 07/25/24 07:45 07/25/24 07:45 07/25/24 07:45 07/25/24 07:45 07/25/24 07:45 Narrative: See physical exam from progress note dated 07/25/2024 [facility] All Active Problems (Updated 07/23/24 @ 13:39 by Viola Oconnell MD) hemorrhage, delivered (Acute) Laceration of periurethral tissue with delivery (Acute) Repaired and hemostatic HELLP syndrome (Acute) Elevated liver enzymes (Acute) Anxiety (Chronic) controlled with sertraline Medical History (Updated 07/23/24 @ 13:39 by Viola Oconnell MD) Normal spontaneous vaginal delivery Susceptible to varicella (non-immune), currently Rubella non-immune status, antepartum Rh negative state in antepartum period Social History Smoking/Tobacco Use Status: Never Smoking risk assessment performed?: Yes Alcohol Intake: never Drug use: Never Housing: house Do you feel safe at home: Yes Do you feel safe in your relationship?: Yes History History 1 Para 0 Hx # Term Pregnancies 0 Multiple births 0 Hx # Pregnancies 0 Ectopic pregnancies 0 AB induced 0 Hx Number of Living Children 0 AB spontaneous 0 DS: Data Vitals/I&O Vitals and I&O: Vital Signs Temperature 98.2 F 07/25/24 07:45 Temperature Source Tympanic 07/25/24 07:45 Pulse 70 07/25/24 07:45 Pulse Rhythm Regular 07/25/24 07:45 Respiratory Rate 16 07/25/24 07:45 Respiratory Depth Normal 07/24/24 19:59 Blood Pressure 128/80 07/25/24 07:45 Blood Pressure Mean 96 07/25/24 07:45 Pulse Oximetry 98 07/25/24 07:45 Oxygen Delivery Method Room Air 07/24/24 11:29 Oxygen Flow Rate 0 07/24/24 11:29 Pain Level 3 07/23/24 12:58 Intake & Output 07/24/24 07/24/24 07/25/24 11:59 23:59 11:59 Intake Total 500 / 2579.166 2079.166 / 2579.166 Output Total 3200 / 4000 800 / 4000 Balance -2700 / -7172.952 4477.166 / -1420.834 Intake: IV 1729.166 / 1729.166 Oral 500 / 500 Blood Product 350 / 350 Rbc Leuko Reduced Unit 350 / 350 [id number] Output: Urine 3200 / 4000 800 / 4000 Other: Urine Color Yellow Yellow Yellow Urine Appearance Clear Clear Data Completed and Pending Labs on day of discharge: Labs from last 24 hours 07/25/24 07/24/24 07/23/24 06:12 13:54 14:58 WBC 11.85 H 13.94 H RBC 3.07 L 3.22 L Hgb 9.1 L 9.4 L Hct 27.3 L 28.0 L MCV 89 87 MCH 29.6 29.2 MCHC 33.3 33.6 RDW 14.2 13.8 Plt Count 275 258 MPV 10.4 10.6 Immature Gran % 2.7 1.9 Neutrophils % 68.8 77.1 Lymphocytes % 20.2 13.5 Monocytes % 5.7 5.4 Eosinophils % 2.3 1.5 Basophils % 0.3 0.6 Nucleated RBC % 0.3 0.0 Absolute Neutrophils 8.15 H 10.75 H Absolute Lymphocytes 2.39 1.88 Absolute Monocytes 0.68 0.75 Absolute Eosinophils 0.27 0.21 Absolute Basophils 0.04 0.08 Sodium 143 Potassium 3.7 Chloride 110 H Carbon Dioxide 25.6 Anion Gap 7.4 BUN 10 Creatinine 0.7 Est GFR (CKD-EPI 2020) 122.25 Glucose 80 Calcium 8.6 Total Bilirubin 0.38 AST 129 H ALT 300 H Alkaline Phosphatase 142 H Total Protein 5.8 L Albumin 2.1 L ABO/Rh O Negative Antibody Screen POSITIVE Antibody Identification Anti-D Crossmatch See Detail
== END 2024-07-25 18:40 | disposition home or self-care (01) | DRG 806 ==
PROVIDERS: Advanced Practice Midwife; Obstetrics & Gynecology; Admitting Provider Obstetrics & Gynecology; Visit Provider Obstetrics & Gynecology
DX: O14.24 HELLP syndrome, complicating childbirth (principal); D62 Acute posthemorrhagic anemia; Z37.0 Single live birth; O72.1 Other immediate postpartum hemorrhage; Z3A.36 36 weeks gestation of pregnancy; O71.82 Other specified trauma to perineum and vulva; O70.1 Second degree perineal laceration during delivery; O99.344 Other mental disorders complicating childbirth; F41.9 Anxiety disorder, unspecified; O26.893 Other specified pregnancy related conditions, third trimester; Z67.91 Unspecified blood type, Rh negative; Z28.39 Other underimmunization status; R79.89 Other specified abnormal findings of blood chemistry; O90.81 Anemia of the puerperium
CPT/HCPCS: 51702; 59300; 36415; 36430; 80053; 85027; 86850; 86900; 86901; 86920; 90707; 90716; 59200; 83735; 85025; 85610; 86870; 88307; J2003; J3475; J3490; P9016

== ENCOUNTER 2024-07-30 02:54 | Outpatient (CLI) | payer BC, SELFPAY ==
[2024-07-30 11:17] LABS: Abs Immature Grans 0.13 10^3/uL (0.0-0.06); Absolute Basophil Count 0.05 10^3/uL (0.0-0.2); Absolute Eosinophil Count 0.27 10^3/uL (0.0-0.7); Absolute Lymphocyte Count 1.88 10^3/uL (1.2-3.4); Absolute Monocyte Count 0.82 10^3/uL (0.1-0.8); Basophils % 0.4 %; Eosinophils % 2.1 %; HCT 33.6 % (36.0-46.0); HGB 10.9 g/dL (11.2-15.7); Lymphocytes % 14.6 %; MCHC 32.4 % (32.0-36.0); MCV 89 fL (80-95); MPV 8.9 fL (8.0-11.0); Monocytes % 6.4 %; Neutrophils % 75.5 %; Platelet Count 515 10^3/uL (130-400); RBC 3.76 10^6/uL (3.93-5.22); RDW 13.2 % (11.7-14.6); WBC 12.85 10^3/uL (4.4-10.8)
[2024-07-30 11:41] LABS: COMMENT (LAB VIEW ONLY) 19.38 mg/dL; PROTEIN < 6.0 mg/dL
[2024-07-30 11:44] LABS: ALT 85 U/L (14-59); AST 26 U/L (15-37); Albumin 2.9 g/dL (3.4-5.0); Alkaline Phosphatase 138 U/L (46-116); Anion Gap 9.7 mmol/L (3-11); BUN 16 mg/dL (7-18); Bilirubin, Total 0.32 mg/dL (0.2-1.0); CO2 22.3 mmol/L (21.0-32.0); CREATININE 0.6 mg/dL (0.55-1.02); Calcium 8.8 mg/dL (8.5-10.1); Chloride 106 mmol/L (98-107); Estimated GFR 126.87 (mL/min/1.73m2); Glucose 83 mg/dL (74-106); Potassium 4.6 mmol/L (3.5-5.1); Sodium 138 mmol/L (136-145); Total Protein 7.2 g/dL (6.4-8.2)
== END 2024-07-30 02:55 | disposition home or self-care (01) ==
PROVIDERS: Obstetrics & Gynecology; Visit Provider Obstetrics & Gynecology
DX: R74.8 Abnormal levels of other serum enzymes (principal); O72.1 Other immediate postpartum hemorrhage; O14.20 HELLP syndrome (HELLP), unspecified trimester
CPT/HCPCS: 36415; 80053; 82565; 84156; 85025

== ENCOUNTER 2024-08-06 12:22 | Outpatient (REF) | payer BC, SELFPAY | END 2024-08-06 12:23 | disposition home or self-care (01) | LOC: LBN 12:22 | PROVIDERS: Visit Provider Obstetrics & Gynecology | DX: N89.8 Other specified noninflammatory disorders of vagina (principal); O71.82 Other specified trauma to perineum and vulva | CPT/HCPCS: 87480; 87510; 87660 ==

== ENCOUNTER 2024-08-12 14:55 | Outpatient (CLI) | payer BC, SELFPAY ==
[2024-08-12 15:30] LABS: Abs Immature Grans 0.02 10^3/uL (0.0-0.06); Absolute Basophil Count 0.06 10^3/uL (0.0-0.2); Absolute Eosinophil Count 0.26 10^3/uL (0.0-0.7); Absolute Lymphocyte Count 2.15 10^3/uL (1.2-3.4); Absolute Monocyte Count 0.43 10^3/uL (0.1-0.8); Absolute Neutrophil Count 3.27 10^3/uL (1.2-6.7); Eosinophils % 4.2 %; HCT 37.3 % (36.0-46.0); HGB 11.9 g/dL (11.2-15.7); Immature Grans % 0.3 %; Lymphocytes % 34.7 %; MCH 27.5 pg (27.0-33.0); MCHC 31.9 % (32.0-36.0); MCV 86 fL (80-95); Monocytes % 6.9 %; Neutrophils % 52.9 %; Platelet Count 387 10^3/uL (130-400); RBC 4.33 10^6/uL (3.93-5.22); RDW 12.3 % (11.7-14.6); RDW-SD 38.8 fL; WBC 6.19 10^3/uL (4.4-10.8)
[2024-08-12 15:57] LABS: ALT 37 U/L (14-59); AST 25 U/L (15-37); Albumin 3.6 g/dL (3.4-5.0); Alkaline Phosphatase 101 U/L (46-116); Anion Gap 7.9 mmol/L (3-11); BUN 15 mg/dL (7-18); Bilirubin, Total 0.5 mg/dL (0.2-1.0); CO2 28.1 mmol/L (21.0-32.0); CREATININE 1.2 mg/dL (0.55-1.02); Calcium 9.3 mg/dL (8.5-10.1); Chloride 106 mmol/L (98-107); Estimated GFR 64.02 (mL/min/1.73m2); Glucose 82 mg/dL (74-106); Potassium 4.2 mmol/L (3.5-5.1); Sodium 142 mmol/L (136-145); Total Protein 7.3 g/dL (6.4-8.2)
== END 2024-08-12 14:56 | disposition home or self-care (01) ==
LOC: LBO 14:55
PROVIDERS: Visit Provider Obstetrics & Gynecology
DX: O14.23 HELLP syndrome (HELLP), third trimester (principal); Z39.2 Encounter for routine postpartum follow-up
CPT/HCPCS: 36415; 80053; 85025

== ENCOUNTER 2024-09-08 10:52 | Outpatient (REF) | payer BC, SELFPAY ==
--- NOTE | 2024-09-08 10:40 | PAPFT_PTH ---
PATIENT: Nafisa Grider LOC: [facility] U#:[id number] AGE/SX: 28/F ROOM: RE09/08/[address]: Lennie Dutton : 1995 BED: DIS: 09/08/2024 SPEC #: [id number] RECD: 09/08/24 12:57 STATUS: LINO REQ #: [id number] ESTEPHANIA: 09/08/24 10:[address]: Lennie Dutton DEPT: [facility] Cytology RECD BY: Zaida Degroot ENTERED: 09/08/24 12:57 SP TYPE: PAPFT ARTEMIO DR: Unknown,Unknown Tissues: 1 - CX/ENDOCX FOR PAP SMEARS Procedures: PAP THIN PREP/UVM Screening Comments: [id number]
== END 2024-09-08 10:53 | disposition home or self-care (01) ==
LOC: LBN 10:52
PROVIDERS: Visit Provider Advanced Practice Midwife
DX: Z12.4 Encounter for screening for malignant neoplasm of cervix (principal)
CPT/HCPCS: 88142